=== PATIENT | male | born 1945 | race Caucasian/White ===

== ENCOUNTER 2022-12-12 11:17 | Day surgery (SDC) | payer OTHER ==
[2022-12-05 12:02] LABS: BASOPHILS # (AUTO) 0.1 X10'3 (0-0.2); BASOPHILS % (AUTO) 1.2 % (0-1); EOSINOPHILS # (AUTO) 0.6 X10'3 (0-0.9); EOSINOPHILS % (AUTO) 5.4 % (0-6); HEMATOCRIT 43.8 % (42.0-52.0); HEMOGLOBIN 14.6 g/dl (14.0-17.9); LYMPHOCYTES # (AUTO) 3.2 X10'3 (1.1-4.8); LYMPHOCYTES % (AUTO) 29.2 % (21-51); MEAN CORPUSCULAR HEMOGLOBIN 29.8 PG (27.0-31.0); MEAN CORPUSCULAR HGB CONC 33.2 g/dL (33.0-36.5); MEAN CORPUSCULAR VOLUME 89.8 FL (78-98); MEAN PLATELET VOLUME 8.3 FL (7.4-10.4); MONOCYTES # (AUTO) 0.7 X10'3 (0-0.9); NEUTROPHILS # (AUTO) 6.4 X10'3 (1.8-7.7); NEUTROPHILS % (AUTO) 58.2 % (42-75); PLATELET COUNT 304 X10'3 (140-440); RED BLOOD COUNT 4.88 X10'6 (4.70-6.10); RED CELL DISTRIBUTION WIDTH 14.5 % (11.5-14.5)
[2022-12-05 12:21] LABS: ALANINE AMINOTRANSFERASE 15 U/L (12-78); ALBUMIN 3.2 G/DL (3.4-5.0); ALBUMIN/GLOBULIN RATIO 0.9 (1.1-1.5); ALKALINE PHOSPHATASE 99 IU/L (46-116); ANION GAP 5 (8-16); ASPARTATE AMINO TRANSFERASE 12 U/L (10-37); BILIRUBIN,TOTAL 0.5 MG/DL (0.1-1.0); BLOOD UREA NITROGEN 34 MG/DL (7-18); BUN/CREATININE RATIO 14.7 (10.0-20.0); CALCIUM 9.9 MG/DL (8.5-10.1); CHLORIDE 108 MMOL/L (99-107); CREATININE 2.31 MG/DL (0.60-1.10); GLUCOSE 110 MG/DL (70-104); POTASSIUM 4.5 MMOL/L (3.5-5.1); SODIUM 143 MMOL/L (135-145); TOTAL CARBON DIOXIDE 29.6 MMOL/L (24-32); TOTAL PROTEIN 6.8 G/DL (6.4-8.2); eGFR 28 ML/MIN
[2022-12-12] VITALS (12 sets, daily range): BP systolic 130–176; BP diastolic 51–86
[~2022-12-12] VITALS: Ht 175.3 cm; Wt 59.0 kg
[~2022-12-12 11:17] MED LIST: AMLO2.5T2 PO; ASPI-529 PO; ATOR20TA PO; CHOL10008 PO; DOCUMENT DATE & TIME OF BETA-BLOCKER PO ONE; FINA5TAB11 PO; FLO0.4C PO; HYDR25TA5 PO; LISI40TA13 PO; METO-539 PO; OXYC-658 PO; albuterol 2.5 MG/3 ML nebule NEB ONE; cefazolin 2gm/D5W 100mL 100 ML IV ONE; famotidine 20mg tablet PO ONE; meperidine/PF 25mg/ml syringe IV PRN; morphine 2 MG/ML inj. syringe IV PRN; morphine 4 MG/ML inj SYRINge IV PRN; ondansetron/PF 4mg/2ml inj IV PRN; proCHLORperazine 10 MG/2 ml inj IV PRN; ringers solution, lacted 1,000 ML IV SCH
[2022-12-12] MEDS ORDERED: BUPIVAcaine 0.5% inj/PF 30 ML ONE (12:49)
[2022-12-12] MEDS ORDERED: desflurane 240ml liquid inh. IH ONE (12:50)
[2022-12-12] MEDS ORDERED: dexamethasone sod phosphate 10mg/ml inj ONE (12:50)
[2022-12-12] MEDS ORDERED: Cipro HC otic suspension 10ML bottle ONE (13:00)
[2022-12-12] MEDS ORDERED: midazolam 1 mg/ML 2ml injection ONE (13:04)
[2022-12-12] MEDS ORDERED: fentaNYL/PF 50MCG/1 ML 2ML syringe ONE (13:04)
[2022-12-12] MEDS ORDERED: propofol inj 20 ML IV ONE (13:10)
[2022-12-12] MEDS ORDERED: LIDOcaine 1%/PF 5ML 10 MG/ML VIAL ONE (13:10)
[2022-12-12] MEDS ORDERED: morphine 4 MG/ML inj SYRINge ONE (13:17)
[2022-12-12] MEDS ORDERED: BUPIVAcaine 0.5% inj/PF 30 ml vial IJ ONE (13:19)
[2022-12-12] MEDS ORDERED: bacitracin 15gm ointment TP ONE (13:37)
[2022-12-12] MEDS ORDERED: acetaminophen 1,000mg/100ml IV 100 ML IV ONE (13:50)
--- NOTE | 2022-12-12 14:12 | NUR ---
Received from OR via [facility], accompanied by Anesthesiologist DR WHITE and report given by Anesthesiologist. PT IS GROGGY BUT RESPONDS TO VERBAL STIMULI. PT PLACED ON BEDSIDE MONITOR, VSS. PT IS IN SR WITH RATE IN LOW 60'S. PT IS RECEIVING 8L O2 TOMASK AND TOLERATING WELL WITH O2 SAT >95%. WILL TITRATE DOWN PT TOLERATES. PT HAS 20G PIV TO LEFT HAND WITH NS INFUSING ORDERED. PT HAS DRSG TO RT GROIN THAT IS CDI. PT DENIES PAIN AT THIS TIME. WILL CONTINUE TO ASSESS
[2022-12-12] MEDS: meperidine/PF 25mg/ml syringe IV PRN ×2 (14:53→15:14)
[2022-12-12] MEDS ORDERED: oxyCODONE/APAP 10/325mg tablet PO ONE (16:15)
--- NOTE | 2022-12-12 17:55 | NUR ---
ABLE TO SAFELY AMBULATE AND TRANSFER SELF. IV TAKEN OUT WITHOUT ANY COMPLICATIONS. ALL DISCHARGE INSTRUCTIONS COVERED WITH PATIENT AND ALL QUESTIONS ANSWERED. KNAPP CATH PLACED D/T PT BEING UNABLE TO VOID AND BLADDER SCAN OF 300ML. PT GIVEN INSTRUCTIONS FOR HOME CARE PROVIDED WELL D/C INSTRUCTIONS. PT ALSO INFORMED THAT DR BROWER WILL BE AT [place] [facility] THE NEXT 2 DAYS AND CAN COME IN FOR CATH REMOVAL IF NEEDED. PATIENT TAKEN OUT VIA WHEELCHAIR TO PERSONAL VEHICLE WHERE FAMILY/FRIEND DROVE PATIENT HOME.
== END 2022-12-12 17:45 | disposition home or self-care (01) ==
LOC: PAS 11:17
PROVIDERS: ATTEND Surgery
DX: K41.90 Unilateral femoral hernia, without obstruction or gangrene, not specified as recurrent (principal); J44.9 Chronic obstructive pulmonary disease, unspecified; G89.29 Other chronic pain; F32.A Depression, unspecified; I12.9 Hypertensive chronic kidney disease with stage 1 through stage 4 chronic kidney disease, or unspecified chronic kidney disease; N18.30 Chronic kidney disease, stage 3 unspecified; I65.22 Occlusion and stenosis of left carotid artery; K21.9 Gastro-esophageal reflux disease without esophagitis; Z79.899 Other long term (current) drug therapy; Z79.891 Long term (current) use of opiate analgesic; F17.210 Nicotine dependence, cigarettes, uncomplicated; Z86.73 Personal history of transient ischemic attack (TIA), and cerebral infarction without residual deficits; Z79.01 Long term (current) use of anticoagulants
CPT/HCPCS: 36415; 49550; 80053; 82948; 85025; C1781; J0131; J0690; J1100; J2175; J2250; J2270; J2704; J3010; J3490; J7030; J7120; S0020; Z7506; Z7508; Z7512; A4215; A4314; A4618; A6449; A7000

== ENCOUNTER 2025-04-27 16:07 | Inpatient (IN) | payer OTHER ==
[~2025-04-27] VITALS: Ht 180.3 cm; Wt 62.7 kg
[~2025-04-27 16:07] MED LIST changes: +CHOL100061 PO; -CHOL10008 PO; -DOCUMENT DATE & TIME OF BETA-BLOCKER PO ONE; -FLO0.4C PO; -LISI40TA13 PO; +LISI40TA20 PO; +TAMS-55 PO; -albuterol 2.5 MG/3 ML nebule NEB ONE; -cefazolin 2gm/D5W 100mL 100 ML IV ONE; -famotidine 20mg tablet PO ONE; -meperidine/PF 25mg/ml syringe IV PRN; -morphine 2 MG/ML inj. syringe IV PRN; -morphine 4 MG/ML inj SYRINge IV PRN; -ondansetron/PF 4mg/2ml inj IV PRN; -proCHLORperazine 10 MG/2 ml inj IV PRN; -ringers solution, lacted 1,000 ML IV SCH
--- NOTE | 2025-04-27 16:24 | Physician Documentation ---
History of Present Illness General Chief Complaint: Bloody Emesis Stated Complaint: SEE CHIEF COMPLAINT Time Seen by MD: 16:21 History of Present Illness Initial Comments The patient is a 80-year-old male complains of emesis since having surgery on the 20 of April. The patient states that he has had prostate surgery he has laparoscopic scars on his abdomen. The patient states after surgery he has had recurrent episodes of bright red blood from his vomit he states he has vomited 3 times a day. The patient denies any history of GI bleed. Patient denies any use of NSAIDs or aspirin. The patient denies any blood thinners. The patient also complains of lower abdominal pain he states he has had pain since the surgery on the . The patient states he had prostate resection. The patient denies any fevers or chills. Patient's symptoms are moderate and persistent. Medication Reconciliation Allergies: Coded Allergies: No Known Allergies (Unverified , 12/11/22) Scheduled Amlodipine* (Norvasc*), 5 MG PO DAILY, (Reported) Aspirin (Baby Aspirin), 1 TAB PO DAILY, (Reported) Atorvastatin Calcium* (Lipitor*), 1 TABLET PO HS, (Reported) Cefpodoxime Proxetil (Cefpodoxime Proxetil), 200 MG PO DAILY, (Reported) Finasteride (Finasteride), 1 TAB PO DAILY, (Reported) Hydrochlorothiazide (Hydrochlorothiazide), 1 TAB PO DAILY, (Reported) Hydrochlorothiazide (Hydrochlorothiazide), 1 TAB PO DAILY, (Reported) Lisinopril* (Lisinopril*), 1 TAB PO DAILY, (Reported) Metoprolol Tartrate (Lopressor tablet), 1 TAB PO Q12H, (Reported) Trospium Chloride (Trospium Chloride), 1 TAB PO Q12H, (Reported) Scheduled PRN Omeprazole (Omeprazole), 1 CAP PO DAILY PRN for prn, (Reported) Oxycodone Hcl IR* (Oxycodone IR*), 1 TAB PO Q4H PRN for moderate or severe pain, (Reported) Discontinued Medications Amlodipine* (Norvasc*), 10 MG PO DAILY, (Reported) Discontinued Reason: patient no longer taking Cholecalciferol (Vitamin D3) (Vitamin D3), 1 CAP PO DAILY, (Reported) Discontinued Reason: patient no longer taking Metoprolol Succinate* (Toprol Xl*), 1 TAB PO DAILY, (Reported) Discontinued Reason: patient no longer taking Tamsulosin Hcl* (Flomax*), 2 CAP PO HS, (Reported) Discontinued Reason: patient no longer taking Past Medical History Other Past Medical History: Prostate cancer Review of Systems All Other Systems at this time: Reviewed and Negative Physical Exam Physical Exam Vital Signs: Source: Oral, Heart Rate: 79, Respiratory Rate: 16, BP: 63/37, Pulse Oximetry: 95, Weight: 62.730 Oxygen Flow Rate: 0 Physical Exam VITALS: Reviewed and as above. GENERAL: Alert, no apparent distress. HEENT: Normocephalic, atraumatic, PERRL, EOMI, dry mucosa, no erythema RESPIRATORY: Lungs clear, normal breath sounds, no respiratory distress. CHEST: No accessory muscle use, no retractions CV: Regular rate, rhythm, no edema, no murmur, No: JVD GI: Diffuse lower abdominal tenderness, laparotomy scars in his small midline and suture line with sutures intact. No peritoneal signs bowels sounds present, no rebound, guarding, or rigidity BACK: No CVA tenderness, or swelling MUSCULOSKELETAL: No deformities, no edema SKIN: Warm and dry, no rash NEURO: Oriented x4, No motor or sensory deficit PSYCH: Normal mood and affect, no agitation Progress Results/Orders Results/Orders Orders - OHLJAMIL DENSON MD Stat Ekg (04/27/25 ) Ct Chest Abdomen Pelvis (04/27/25 ) Page Hospitalist (04/27/25 ) Completed Orders - OHJAMIL COVARRUBIAS MD Cbc/Diff (04/27/25 16:20) Lipase (04/27/25 16:20) CMP (04/27/25 16:20) Type And Screen (04/27/25 16:20) Stat Ekg (04/27/25 ) Pantoprazole 40mg/Ns 100ml Bag (Protonix (04/27/25 16:25) Pantoprazole 40mg Iv (Protonix 40mg Iv) (04/27/25 16:25) Normal Saline 1000ml (0.9% Sodium Chlori (04/27/25 16:30) Hydromorphone 0.5 Mg/0.5 Ml/Pf (Dilaudid (04/27/25 16:30) Ondansetron Inj. (Zofran 4mg/2ml Vial) (04/27/25 16:35) Normal Saline 1000ml (0.9% Sodium Chlori (04/27/25 17:15) Ct Chest Abdomen Pelvis (04/27/25 ) Ceftriaxone/P8f-Efnxyzpe 1gm (Rocephin 1 (04/27/25 17:55) Azithromycin/Ns 500mg/250ml (Zithromax/N (04/27/25 17:55) Hgb A1c (04/27/25 16:34) MG (04/27/25 16:34) PBNP (04/27/25 16:34) PHOS (04/27/25 16:34) Vital Signs 04/27/25 04/27/25 04/27/25 04/27/25 16:14 16:34 16:44 17:23 Temp 97.9 Pulse 79 99 Resp 16 13 15 B/P (MAP) 63/37 141/65 (90) Pulse Ox 95 89 O2 Flow Rate 0 0 Laboratory Tests Test 04/27/25 16:27 04/27/25 16:34 04/27/25 16:54 White Blood Count 10.9 Red Blood Count 3.61 L Hemoglobin 11.0 L Hematocrit 32.1 L Mean Corpuscular Volume 88.8 Mean Corpuscular Hemoglobin 30.4 Mean Corpuscular Hemoglobin Concent 34.3 Red Cell Distribution Width 14.2 Platelet Count 347 Mean Platelet Volume 8.4 Neutrophils (%) (Auto) 65.5 Lymphocytes (%) (Auto) 17.8 L Monocytes (%) (Auto) 9.7 Eosinophils (%) (Auto) 6.3 H Basophils (%) (Auto) 0.7 Neutrophils # (Auto) 7.1 Lymphocytes # (Auto) 1.9 Monocytes # (Auto) 1.1 H Eosinophils # (Auto) 0.7 Basophils # (Auto) 0.1 CBC Comment Prothrombin Time 10.7 INR International Normalized Ratio 1.0 Activated Partial Thromboplast Time 27 Coagulation Comments Sodium Level 140 Potassium Level 4.4 Chloride Level 101 Carbon Dioxide Level 34.1 H Anion Gap 5 L Blood Urea Nitrogen 56 H Creatinine 4.51 H Estimated GFR/1.73 m2 13 BUN/Creatinine Ratio 12.4 Glucose Level 139 H Hemoglobin A1c 5.4 Calcium Level 9.2 Phosphorus Level 6.3 H Magnesium Level 3.1 H Total Bilirubin 0.3 Aspartate Amino Transf (AST/SGOT) 20 Alanine Aminotransferase (ALT/SGPT) 18 Alkaline Phosphatase 91 Pro-B-Type Natriuretic Peptide 1371 H Total Protein 6.8 Albumin 2.6 L Globulin 4.2 Albumin/Globulin Ratio 0.6 L Lipase 29 Procalcitonin 0.33 Chemistry Comments Lactic Acid Level 1.1 Medical Decision Making Additional information obtaine: old records Findings 80-year-old male with a reported hematemesis over the last week the patient is also has a lower abdominal pain, patient has remained hemodynamically stable the patient was started on Protonix drip CT imaging was reviewed by me prior to radiology reviewing the films the patient is pending radiology review and has been signed out to the oncoming physician. The patient will be admitted to the hospitalist. The patient has had a rapid recent laparoscopic prostate surgery the patient will be admitted to the hospitalist service. The patient was started on Protonix. Previous hospitalizations has been reviewed. The patient's pulse oximetry was interpreted as normal and adequate. The patient's CT was reviewed by me and also demonstrated a right lower lobe infiltrate he was started on antibiotics. The patient's pulse oximetry was interpreted as normal and adequate in his night monitor was interpreted as sinus rhythm Differential Diagnosis Perforated viscus, ileus, pneumonia, sepsis Departure Admitted to Inpatient Unit: yes, to hospitalist Impression: Primary Impression: GI bleed Qualified Codes: K92.2 - Gastrointestinal hemorrhage, unspecified Additional Impressions: Hematemesis Qualified Codes: K92.0 - Hematemesis Pneumonia Qualified Codes: J18.9 - Pneumonia, unspecified organism Acute kidney injury Referrals: NO PRIMARY CARE PROVIDER (PCP) Signature Scribe Signature: No scribe Attestation: The note accurately reflects work and decisions made by me.Jamil Manriquez MD 04/29/25 06:50 JAMIL MANRIQUEZ MD Apr 27, 2025 16:24
[2025-04-27] MEDS: ondansetron/PF 4mg/2ml inj IV ONE (16:42)
[2025-04-27] MEDS: HYDROmorphone inj. 0.5 MG/0.5 ML DISP.SYRIN IV ONE ×2 (16:44→23:36)
[2025-04-27] MEDS: normal saline 1000ML IV soln IVB ONE ×2 (16:47→19:12)
[2025-04-27] MEDS: pantoprazole 40MG/NS 100ML BAG 100 ML IV ONE (16:47)
[2025-04-27 16:53] LABS: MEAN PLATELET VOLUME 8.4 FL (7.4-10.4); RED CELL DISTRIBUTION WIDTH 14.2 % (11.5-14.5)
[2025-04-27 16:58] LABS: CREATININE 4.51 MG/DL (0.60-1.10); TOTAL CARBON DIOXIDE 34.1 MMOL/L (24-32); eCRCL 12 ML/MIN; eGFR 13 ML/MIN
--- NOTE | 2025-04-27 17:13 | ELECTROCARDIOGRAPH REPORT ---
[facility] Test Date: 2025-04-27 Test Time: 16:25:55 Pat Name: JOSE ALBERTO ANAYA Department: EMERGENCY ROOM Room: ORTHO [facility] Gender: M Molecular Modeler: CHANDRA : 1945 Requested By: JAMIL OCHOA Order Number: [id number] Reading MD: Dr. OMAR Boateng Measurements Intervals [place] Rate: 77 P: 52 VT: 157 QRS: -37 QRSD: 91 T: 85 QT: 382 QTc: 433 Interpretive Statements Sinus rhythm Left axis deviation Low voltage, precordial leads Nonspecific T abnrm, anterolateral leads Minimal ST elevation, anterolateral leads Electronically Signed On 04-28-2025 17:33:[address] OMAR Boateng Please click the below link to view image of tracing.
[2025-04-27] MEDS: CefTRIAXone/D5W-Rocephin 1gm 50 ML IV ONE (18:26)
--- NOTE | 2025-04-27 18:44 | RADIOLOGY REPORT ---
Indication: COUGHT HX PROSTATE CA abd pain, emesis Technique: CT axial images of the chest, abdomen and pelvis are obtained without intravenous contrast. Coronal and sagittal reformats were obtained. Radiation Dose Information: CTDI volume is 8.6 mGy. Dose-length product is 953 mGy*cm Comparison: None FINDINGS: Trachea is patent. No pneumothorax. Pulmonary emphysematous changes. Right lower lobe airspace consolidation, tree-in-bud nodularity and bronchiectatic changes. Heart normal in size. Aortic atherosclerotic disease. Coronary artery calcification disease. Pretracheal lymph nodes measuring up to 10 mm. No supraclavicular, axillary lymphadenopathy. Adrenal glands, spleen, pancreas and liver unremarkable in shape. No CT evidence for cholelithiasis. Kidneys demonstrate no hydronephrosis / nephrolithiasis. Marked gastric distention. The small bowel loops arem moderately distended up to proximally 3 cm. There are also fecal like contents within the small bowel. Colonic diverticular disease. Large volume stool throughout the colon. No secondary signs for appendicitis. Abdominal aortic atherosclerotic disease. Dilatation of the infrarenal abdominal aorta up to 2.5 cm. Dilatation right common iliac artery to 1.7 cm. Andujar catheter. Bladder decompressed. Bladder wall thickening with surrounding stranding. There is moderate volume pneumoperitoneum extending to the upper abdomen. Free air within the pelvis. Findings suggestive of prostatectomy. Moderate lumbar degenerative disc disease most pronounced at L4-5. [id number] bilateral sacroiliac degenerative joint disease. No aggressive osseous process. Yyxf-gu-[id number] thoracic degenerative disc disease. IMPRESSION: Limited evaluation without contrast. Moderate volume of pneumoperitoneum. There is also free air within the pelvis. While this could be secondary to the patient's known history of recent laparoscopic prostate surgery/prostatectomy, correlate clinically to exclude any type of perforated viscus/perforated bowel. Recommend urology and surgery consultation for evaluation. Large volume stool within the colon may represent constipation in the appropriate clinical setting. Moderate distention of small-bowel loops with fecal like contents up to 3 cm. Fecal like contents within the small bowel which can be seen with ileus, hypomotility, bowel obstruction. Gastric distention. There is right lower lobe pulmonary airspace consolidation, tree-in-bud nodularity and bronchiectatic changes with differential considerations including atypical infectious processes, aspiration. Atherosclerotic disease. 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 Extensive colonic diverticular disease. Bladder decompressed by Andujar catheter. Bladder wall thickening with surrounding stranding may represent sequela of cystitis. Other findings as described
[2025-04-27] MEDS: azithromycin/NS 500mg/250ml 250 ML IV ONE (19:13)
[2025-04-27] MEDS ORDERED: magnesium Cl slow-release 64mg tablet PO PRN (19:15)
[2025-04-27] MEDS ORDERED: magnesium hydroxide 30ml (MOM) UD suspension PO PRN (19:15)
[2025-04-27] MEDS ORDERED: potassium Cl 40MEQ/1/2NS 520ml 520 ML IV PRN (19:15)
[2025-04-27] MEDS ORDERED: magnesium sulf-water 4G/100mL 100 ML IV PRN (19:15)
[2025-04-27] MEDS ORDERED: magnesium sulf-water 2g/50mL 50 ML IV PRN (19:15)
[2025-04-27] MEDS ORDERED: potassium Cl 20 mEq SR tablet PO PRN ×2 (19:15)
[2025-04-27] MEDS ORDERED: mag hydrox/Alum hydrox/simeth 30ml oral suspension PO PRN (19:15)
[2025-04-27 19:35] LABS: APTT 27 SECONDS (22-32); INR 1.0 INR
[2025-04-27 19:51] LABS: PHOSPHORUS 6.3 MG/DL (2.3-4.5); PRO BRAIN NATRIURETIC PEPTIDE 1371 PG/ML (0-450)
[2025-04-27] MEDS: K and/or MAG REPLACEMENT MC SCH (20:00)
[2025-04-27] MEDS: docusate sod 100mg capsule PO SCH (20:00)
[2025-04-27] MEDS: normal saline 1000ml 1,000 ML IV SCH (21:01)
--- NOTE | 2025-04-27 21:10 | HISTORY AND PHYSICAL-Residence ---
History & Physical Providers to CC Resident Creating Document: NABILA GARCIA RES ~ History of Present Illness Reason for Admit\Complaint: Hematemesis History of Present Illness 80 year old male with history of hypertension, BPH, laparoscopic prostate resection on Apr 20, 2025, history of stoke was brought to the ER by son due to hematemesis and hematuria. He denies prostate cancer and states that he had the surgery as he was unable to void. The son was at home today and noticed bright red blood in vomit and brought him to the ER. The patient states that he has been having 3/4 episodes of hematemesis everyday, especially after he voids after the laparoscopic prostate resection surgery on Apr 20, 2025. He also has hematuria since the surgery, He has a brody's in place with reddish urine but no clots. He is not on anticoagulants. He is on aspirin due to history of stroke. He is not an alcoholic. He never had an endoscopy. He endorses lower abdominal pain. He did not have a bowel movement since the surgery but has been passing gas. He has not been walking much after the surgery. He has decreased appetite and has lost weight. He reports occasional chills. He denies chest pain, shortness of breath, palpitations, swelling and pain in legs, confusion, headache. His PCP is at [place] [facility] He lives with and son at home He can ambulate independently but has not been walking much after the prostate resection surgery Allergies: Coded Allergies: No Known Allergies (Unverified , 12/11/22) Home Medications Home Medications Active Reported Baby Aspirin (Aspirin) 81 Mg Tab.chew 1 Tab PO DAILY Norvasc* (Amlodipine Besylate) 2.5 Mg Tablet 10 Mg PO DAILY Toprol Xl* (Metoprolol Succinate) 25 Mg Tab.sr.24h 1 Tab PO DAILY Hydrochlorothiazide 25 Mg Tab 1 Tab PO DAILY Lipitor* (Atorvastatin Calcium) 20 Mg Tablet 1 Tablet PO HS Finasteride 5 Mg Tablet 1 Tab PO DAILY Flomax* (Tamsulosin HCl) 0.4 Mg Cap.sr.24h 2 Cap PO HS Oxycodone IR* (Oxycodone HCl) 5 Mg Tablet 1 Tab PO Q4H PRN Lisinopril* (Lisinopril) 40 Mg Tablet 1 Tab PO DAILY Vitamin D3 (Cholecalciferol (Vitamin D3)) 25 Mcg Capsule 1 Cap PO DAILY Past Medical History Past Medical History Hypertension BPH Shingles History of Stroke s/p stent placement Past Surgical History Surgical History Comment Abdominal surgery many years ago, patient unable to recall the reason for surgery Laparascopic prostate resection on Apr 20, 2025 Past Social History Social History Comment He smokes a pack/day for the past 50 years He denies alcohol and recreational drug use His PCP is at [place] [facility] He lives with and son at home He can ambulate independently but has not been walking much after the prostate resection surgery ROS All Other Systems: Reviewed and Negative ROS Constitutional: Reports chills, No dizziness Eyes: No pain, erythema, discharge, blurring of vision ENT: No sore throat, epistaxis, tinnitus Cardiovascular: No chest pain, palpitations, syncope, lower extremity edema, paroxysmal nocturnal dyspnea Respiratory: No Shortness of breath and cough, No hemoptysis. Gastrointestinal: Reports lower abdominal pain, vomiting,nausea,constipation, h ematemesis, decreased appetite. Genitourinary: Reports hematuria Musculoskeletal: No Swelling, pain in bilateral lower legs. Integumentary: No change in skin, hair, nails. No swelling, bruising, abrasions Neurologic: No weakness,No headache, numbness or tingling of the extremities, Psychiatric: No delusions, depression, loss of interest in normal activity or change in sleep pattern, hallucinations, suicidal ideations Endocrine: No fatigue, no weakness. polydipsia, polyuria, change in appetite, heat or cold intolerance, sweating, dry skin Hematological: No bleeding, petechiae, bruising Allergies: No asthma or urticaria Exam Vitals: Vital Signs Date Time Temp Pulse Resp B/P (MAP) Pulse Ox O2 Delivery O2 Flow Rate FiO2 04/27/25 19:00 97.5 73 11 127/92 (104) 94 04/27/25 17:23 0 General: Awake , alert, and oriented x4, resting comfortably in the bed, in mild distress due to abdominal pain, brody's in place HEENT: Atraumatic, normocephalic, EOMI, anicteric sclera ; pink conjunctiva, dry mucous membranes, capillary refill > 2 sec Neck: Trachea midline. Supple, full range of motion, no JVD Cardiac: Regular rate, rhythm with no murmurs all over the precordium. Respiratory: Diminished breath sounds bilaterally, no tachypnea, no wheezing ,rub or rales, Chest wall is symmetric and without deformity. Gastrointestinal: 2 cm horizontal scars and 4 cm vertical scar present over abdomen, with no discharge and surrounding skin is normal. Abdomen non- distended, soft, tenderness present in lower abdomen, faint bowel sounds heard, no hepatosplenomegaly noted Musculoskeletal: No pedal edema, no cyanosis Neurological: Speech is clear, alert, and oriented x 4. No motor and sensory deficit, Cranial nerves II-XII intact. Skin: Warm and dry Diagnostic Data Last Recorded Lab Results: 04/27/25 1627 04/27/25 1634 Diagnostic Data: Laboratory Tests Test 04/27/25 16:34 Prothrombin Time 10.7 SECONDS (9.0-12.0) INR International Normalized Ratio 1.0 INR Activated Partial Thromboplast Time 27 SECONDS (22-32) Coagulation Comments Advance Care Planning Advanced Care plannin - 30 Minutes (Full code) Additional Plan Hematemesis Normocytic normochromic anemia Differential diagnosis include Hansa-Alvarez tear, peptic ulcer disease Patient is not an alcoholic, and he has small episodes of hematemesis- esophageal varices are less likely Patient is not on blood thinners, he is only on aspirin 81 mg 2/2 history of stroke H/H is .1 Started protonix drip NG tube is placed and patient is on NPO Monitor H/H Q4h PRBC transfusion if Hb < 7 GI, Dr. Hickman was consulted, awaiting recommendations Possible ileus vs SBO Patient did not have bowel movement after the surgery on Apr 20, 2025 He has been passing gas Faint bowel sounds heard Lower abdominal tenderness present WBC, Procalcitonin and Lactic acid are normal Abdomen CT shows moderate pneumoperitoneum, free air within pelvis which could be secondary to recent laparoscopic surgery, large volume stool within the colon. moderate distension of small bowel loops with fecal like contents upto 3 cm, gastric distension. NG tube is placed and patient is on NPO Surgery, Dr. White was consulted, awaiting recommendations Hematuria UTI due to indwelling brody's catheter BPH s/p laparoscopic prostate resection on Apr 20, 2025 Patient denies history of prostate cancer He has brody's in place with reddish urine and no clots are visible CT shows bladder wall thickening with surrounding stranding which may represent sequela of cystitis. Follow up urinalysis Started IV Rocephin 1 gm - day 1 As per patient, he has been using cefpodoxime 200 mg after the surgery Patient uses finasteride 5 mg and Trospium 20 mg BID for spasms, will continue after med reconciliation Plan to consult urology Acute respiratory failure 2/2 Pneumonia with mixed gram negative and gram positive organisms Possible aspiration pneumonia Bronchiectasis O2 saturation 94 % on 3 L NC Patient does not use O2 at home Patient is an active smoker- 1 pack/day for the past [address] shows right lower lobe pulmonary consolidation, tree-in-bud nodularity, and bronchiectatic changes with differential considerations including atypical infectious processes, aspiration. Started IV rocephin 1 gm and IV zithromax 500 mg-day 1 IV Methylprednisolone 125 mg followed by IV methylprednisolone 40 mg b.i.d. Duonebs and incentive spirometry Follow up sputum cultures KAYLEEN, most likely prerenal due to dehydration Vasomotor nephropathy Creatinine is elevated-4.51, Baseline creatinine 2.31 BUN is elevated- 56 BUN/Cr is normal Follow up urine lytes NS at 100 ml/hr Monitor BMP Hyperphosphatemia Hypermagnesemia Phosphorus- 6.3, Magnesium-3.1 Started Sevelamer 800 mg TID Monitor BMP History of shingles Patient uses oxycodone at home, pending med reconciliation Hypertension Blood pressure has stabilized Patient uses hydrochlorthiazide 25 mg, lisinopril 40 mg and metoprolol tartrate 25 mg BID at home Pending med reconciliation Consider holding lisinopril as eGFR is low History of stoke Patient uses aspirin 81 mg, atorvastatin 20 mg at home Pending med reconciliation, hold aspirin Follow up lipid panel I spent a total of 18 minutes reviewing various resuscitative measures/ACP with the patient. The patient decided to be full code. Code status: Full code DVT prophylaxis : SCD GI prophylaxis: Protonix drip Nutrition: NPO Physical therapy: ordered Line/tube: PIV Analgesia/sedation: Tylenol 325 q.6h PRN Disposition: Continue IV antibiotics, monitor bowel movements, awaiting Dr. Swanson and Dr. White recommendations, PT eval and DC plan Resident attestation The above note has been reviewed and supervised by a senior resident PGY2/PGY3 Patient was seen, examined and discussed with the attending physician, Dr. Aline Garcia Internal Medicine Resident, PGY 1 Date of Service: Apr 27, 2025 Billing Provider: CECY SHARMA MD,NABILA, RES Apr 27, 2025 21:10
--- NOTE | 2025-04-27 21:12 | PROGRESS NOTE ---
Progress Note ID Providers to CC ~ Progress Note Progress Note: pt seen and examined-no peritonitis-pneumoperitoneum likely secondary to recent surgery WICHO SANDERS MD Apr 27, 2025 21:12
[2025-04-27] MEDS ORDERED: TROS20TA4 PO (21:49)
[2025-04-27] MEDS ORDERED: CEFP100T7 PO (21:49)
[2025-04-27] MEDS ORDERED: OMEP20CA16 PO (21:49)
[2025-04-27] MEDS ORDERED: LOP12.5T PO (21:49)
[2025-04-27] MEDS ORDERED: albuterol 2.5 MG/3 ML nebule NEB PRN (22:10)
[2025-04-27] MEDS: sevelamer carbonate 800mg tablet PO SCH (22:25)
[2025-04-27 22:30] VITALS: BP 139/61; PULSE 66; RESP 16; TEMP 97.5; O2SAT 96
--- NOTE | 2025-04-27 23:34 | RADIOLOGY REPORT ---
Exam: DI ABDOMEN,SINGLE VIEW(KUB) Indication: ng placement Comparison: None Technique: 1 radiographic views of the abdomen. FINDINGS/IMPRESSION: Limited evaluation for the assessment of nasogastric tube placement. Nasogastric tube tip projects over the left upper quadrant, presumably in the region of the stomach, though the gastric side port appears to project above the diaphragm, consider tube advancement.
[2025-04-27 23:47] LABS: MEAN PLATELET VOLUME 8.3 FL (7.4-10.4); RED CELL DISTRIBUTION WIDTH 14.0 % (11.5-14.5)
[2025-04-28] VITALS (25 sets, daily range): BP systolic 90–142; BP diastolic 43–73; PULSE 62–89; RESP 12–20; TEMP 97.3–99.2; O2SAT 90–99
[2025-04-28] MEDS: ipratropium/albuterol 3ml nebule NEB SCH (00:18)
[2025-04-28 01:41] LABS: OSMOLALITY UA 345.0 MOSM/K (50-1400)
[2025-04-28 01:44] LABS: CREATININE,URINE RANDOM 87.0 MG/DL
[2025-04-28 02:11] LABS: LEUKOCYTE ESTERASE ,URINE SMALL (Neg); NITRITES, URINE NEGATIVE (Neg); OCCULT BLOOD,URINE LARGE (Neg)
[2025-04-28 02:16] LABS: UA COLLECTION TYPE FOLEY CATH
[2025-04-28 02:21] LABS: SQUAMOUS EPITHELIAL CELL,UR FEW /LPF (FEW)
[2025-04-28 03:21] LABS: MEAN PLATELET VOLUME 8.0 FL (7.4-10.4); RED CELL DISTRIBUTION WIDTH 14.1 % (11.5-14.5)
[2025-04-28 03:29] LABS: CHOL/HDL RATIO 2.5 (0.00-4.99); CREATININE 4.10 MG/DL (0.60-1.10); LDL CHOLESTEROL 44 MG/DL (50-100); TOTAL CARBON DIOXIDE 26.8 MMOL/L (24-32); eCRCL 13 ML/MIN; eGFR 14 ML/MIN
[2025-04-28 03:37] LABS: UA EOSINOPHILS NO EOS /HPF
--- NOTE | 2025-04-28 06:23 | PROGRESS NOTE ---
Clinical Note Clinical Note Progress Note: 80-year-old male with history of hypertension, BPH s/p laparoscopic prostate resection (04/20/25) presented with hematemesis and hematuria. Patient reported 3-4 episodes of bright red vomiting daily. Lower abdominal discomfort was present; no vomiting at time of my exam. Objective: Mild distress, guarding on palpation, no rigidity Abdomen soft, faint bowel sounds Andujar catheter in place with reddish urine, no clots Vitals stable A/P Dr. Christianson (Surgery): no acute surgical abdomen, no need for emergent surgery; will evaluate in a.m. GI consulted: recommended NG tube decompression, NPO, stabilize patient, plan for tentative EGD once stable on 04/28 Continue PPI infusion, monitor H&H Q4h, PRBC transfusion if Hb <7 Monitor for peritoneal signs, bowel function MATT MEZA, RES Apr 28, 2025 06:23
--- NOTE | 2025-04-28 06:28 | CONSULTATION REPORT - RESIDENT ---
Consult Providers to CC Resident Creating Document: MATT MEZA RES History of Present Illness Reason for Admit\Complaint: Hematemesis History of Present Illness A 80-year-old male with history of hypertension, BPH s/p laparoscopic prostate resection on Apr 20, 2025, and prior stroke with stent placement, presented with hematemesis and hematuria. Patient reported 3-4 episodes of bright red vomiting daily, particularly after voiding postoperatively. He has reddish urine without clots through indwelling Andujar. Patient endorses lower abdominal discomfort, constipation since surgery, decreased appetite, and unintentional weight loss. Denies chest pain, shortness of breath, palpitations, confusion or other systemic complaints. The patient has not walked much since surgery, has been passing flatusvand has occasional chills. He has had no bowel movements since then He is not on anticoagulants but takes aspirin 81 mg for stroke prophylaxis. No prior endoscopy or alcohol use. Allergies: Coded Allergies: No Known Allergies (Unverified , 12/11/22) Home Medications Home Medications Active Reported Omeprazole 20 Mg Capsule.dr 1 Cap PO DAILY PRN 30 Days Trospium Chloride 20 Mg Tablet 1 Tab PO Q12H 30 Days Lopressor tablet (Metoprolol Tartrate) 25 Mg Tablet 1 Tab PO Q12H 30 Days Hold for SBP below 100mm Hg Hold for Heart Rate below 60. Hydrochlorothiazide 25 Mg Tab 1 Tab PO DAILY 30 Days Cefpodoxime Proxetil 100 Mg Tablet 200 Mg PO DAILY 7 Days Norvasc* (Amlodipine Besylate) 2.5 Mg Tablet 5 Mg PO DAILY 30 Days Baby Aspirin (Aspirin) 81 Mg Tab.chew 1 Tab PO DAILY Hydrochlorothiazide 25 Mg Tab 1 Tab PO DAILY Lipitor* (Atorvastatin Calcium) 20 Mg Tablet 1 Tablet PO HS Finasteride 5 Mg Tablet 1 Tab PO DAILY Oxycodone IR* (Oxycodone HCl) 5 Mg Tablet 1 Tab PO Q4H PRN Lisinopril* (Lisinopril) 40 Mg Tablet 1 Tab PO DAILY Past Medical History Past Medical History Hypertension BPH Shingles CAD s/p stent placement Past Surgical History Surgical History Comment Laparoscopic prostate resection (04/20/25) Prior abdominal surgery, details unknown Past Social History Social History Comment He smokes a pack/day for the past 50 years He denies alcohol and recreational drug use ROS ROS GI: Hematemesis, nausea, lower abdominal pain, constipation, decreased bowel movements, passing gas : Hematuria All other systems negative for acute complaints Exam Vitals: Vital Signs Date Time Temp Pulse Resp B/P (MAP) Pulse Ox O2 Delivery O2 Flow Rate FiO2 04/28/25 06:04 14 04/28/25 02:14 98.1 80 138/65 (89) 91 Nasal Cannula 2.0 04/28/25 00:20 28 General: General: Awake, alert, oriented 4, mild distress due to abdominal pain HEENT: Atraumatic, normocephalic, EOMI, anicteric sclera ; pink conjunctiva Neck: Trachea midline. Supple, full range of motion, no JVD Cardiac: Regular rhythm, regular rate with no murmurs all over the precordium. Respiratory: Equal breath sounds bilaterally, no tachypnea, no wheezing ,rub or rales, Chest wall is symmetric and without deformity. Abdomen: Soft, non-distended, tenderness in lower abdomen, guarding but no rigidity, faint bowel sounds Musculoskeletal: No pedal edema, no cyanosis Neurological: No FNDs, cranial nerve examination intact , speech is clear, mentation intact Skin: Warm and dry Diagnostic Data Last Recorded Lab Results: 04/28/25 0300 04/28/25 0300 Diagnostic Data: Laboratory Tests Test 04/27/25 16:34 Prothrombin Time 10.7 SECONDS (9.0-12.0) INR International Normalized Ratio 1.0 INR Activated Partial Thromboplast Time 27 SECONDS (22-32) Coagulation Comments Additional Plan 1. Upper GI Bleed (hematemesis) Likely Hanas-Alvarez tear or peptic ulcer Patient stable; not alcoholic, only on aspirin. Plan: Continue PPI drip Monitor H/H Q4h; transfuse PRBC if Hb <7 Tentative EGD today once stabilized Maintain NPO and NG decompression 2. Postoperative ileus / partial small bowel obstruction CT shows moderate small bowel distension, fecal-like contents, moderate pneumoperitoneum (likely postoperative) Passing gas; no rigidity. Plan: Continue NPO and NG decompression Serial abdominal exams, monitor for peritoneal signs Encourage ambulation as tolerated Monitor electrolytes and BMP Surgery, Dr. Gilbert was consulted, no signs of peritonitis currently; hence no urgent need of any surgery Dr. Gilbert to re-evaluate patient in a.m. Hematuria Likely catheter-associated cystitis. Aspiration / community-acquired pneumonia with bronchiectasis KAYLEEN, likely prerenal, vasomotor nephropathy (Cr 4.51, baseline 2.31) Hyperphosphatemia, hypermagnesemia Hypertension Management per hospitalist team Code Status: Full code status DVT Prophylaxis: SCDs for now Analgesia/ Sedation: Avoid NSAIDs Line/tubes: P IV GI Prophylaxis: Protonix Nutrition: NPO for now Matt Meza MD Internal Medicine Resident, PGY-2 Date of Service: Apr 28, 2025 Billing Provider: TANYA CAMACHO MD, GAURAV, RES Apr 28, 2025 06:28
[2025-04-28] MEDS ORDERED: HYDROmorphone inj. 0.5 MG/0.5 ML DISP.SYRIN IV PRN (07:45)
[2025-04-28] MEDS: Trospium Chloride 20 MG PO SCH (08:00)
[2025-04-28 08:01] LABS: MEAN PLATELET VOLUME 8.5 FL (7.4-10.4); RED CELL DISTRIBUTION WIDTH 14.2 % (11.5-14.5)
[2025-04-28 08:31] LABS: PHOSPHORUS 6.0 MG/DL (2.3-4.5)
[2025-04-28] MEDS: docusate sodium 100mg/10ml UD cup PO SCH (08:49)
[2025-04-28] MEDS: HYDROcodone/acetaminophen 10/325mg tab PO PRN (08:51)
[2025-04-28] MEDS: CefTRIAXone/D5W-Rocephin 1gm 50 ML IV SCH (08:56)
[2025-04-28 10:46] LABS: MEAN PLATELET VOLUME 8.0 FL (7.4-10.4); RED CELL DISTRIBUTION WIDTH 14.1 % (11.5-14.5)
--- NOTE | 2025-04-28 11:06 | PROGRESS NOTE- Residence ---
Progress Note - Resident Providers to CC Resident Creating Document: NABILA GARCIA RES ~ Antibiotic Timeout Antibiotic Ordered?: Yes Subjective Patient was seen and examined bedside. He states that the abdominal pain has mildly improved. He had no nausea or vomiting after admission. NG tube has drained bilious fluid of 160 mL overnight. Tenderness present on palpation of lower abdomen. Bowel sounds are heard. Patient has hematuria in Brody's bag without clots. He does not complain of shortness of breath. He is saturating well on 2 L NC. Objective Vital Signs Date Time Temp Pulse Resp B/P (MAP) Pulse Ox O2 Delivery O2 Flow Rate FiO2 04/28/25 08:48 77 04/28/25 07:05 16 97 Nasal Cannula* 2 28 04/28/25 06:00 98.2 142/68 (92) Result Diagram: 04/28/25 1038 04/28/25 0300 Awake, alert, and oriented x4, resting comfortably in the bed, in no acute distress, Brody's tube and NG tube in place HEENT: Atraumatic, normocephalic, EOMI, anicteric sclera ; pink conjunctiva, dry mucous membranes Neck: Trachea midline. Supple, full range of motion, no JVD Cardiac: Regular rhythm, regular rate with no murmurs all over the precordium. Respiratory: Equal breath sounds bilaterally, no tachypnea, no wheezing ,rub or rales, Chest wall is symmetric and without deformity. Gastrointestinal: 2 cm horizontal scars and 4 cm vertical scar present over abdomen, with no discharge and surrounding skin is normal. Abdomen non- distended, soft, tenderness present in lower abdomen, bowel sounds heard, no hepatosplenomegaly Musculoskeletal: No pedal edema, no cyanosis Neurological: Speech is clear, alert, and oriented x 4. No motor or sensory deficit, deep tendon reflexes normal, cerebellar intact. Cranial nerves II-XII intact. Skin: Warm and dry Coagulation Studies Laboratory Tests Test 04/27/25 16:34 Prothrombin Time 10.7 SECONDS (9.0-12.0) INR International Normalized Ratio 1.0 INR Activated Partial Thromboplast Time 27 SECONDS (22-32) Coagulation Comments Assessment Assessment 80-year-old male with history of hypertension, BPH, laparoscopic prostate resection on April 20, 2025 admitted for management of hematemesis, hematuria and SBO. Plan Plan Hematemesis Normocytic normochromic anemia Differential diagnosis include Hansa-Alvarez tear, peptic ulcer disease Patient is not an alcoholic, and he has small episodes of hematemesis- esophageal varices are less likely Patient is not on blood thinners, he is only on aspirin 81 mg 2/2 history of stroke, held aspirin No further episodes of nausea or vomiting NG tube drained 160 mL of bilious fluid overnight H/H downtrended to 9.7/28.9 Continue protonix drip and NPO Monitor H/H Q4h PRBC transfusion if Hb < 7 Patient will be getting EGD today by Dr. Hickman Possible ileus vs SBO Patient did not have bowel movement after the surgery on Apr 20, 2025 He has been passing gas Faint bowel sounds heard Lower abdominal tenderness present Inflammatory markers are normal Abdomen CT shows moderate pneumoperitoneum, free air within pelvis which could be secondary to recent laparoscopic surgery, large volume stool within the colon. moderate distension of small bowel loops with fecal like contents upto 3 cm, gastric distension. NG tube drained 160 mL of bilious fluid overnight Continue patient on NPO Dr. White was consulted, and he states that patient does not need an emergent surgery as there are no signs of peritonitis He recommends to continue bowel rest and he will be following up the patient Monitor bowel movements Hematuria UTI due to indwelling brody's catheter BPH s/p laparoscopic prostate resection on Apr 20, 2025 Patient denies history of prostate cancer He has brody's in place with reddish urine and no clots are visible CT shows bladder wall thickening with surrounding stranding which may represent sequela of cystitis. Urinalysis shows large occult blood with UTI Follow urine cultures Continue IV Rocephin 1 gm - day 2 As per patient, he has been using cefpodoxime 200 mg after the surgery from Apr 20, 2025 Patient uses finasteride 5 mg and Trospium 20 mg BID for spasms, will continue after patient tolerates oral feeding Urology, Dr. Sandy was consulted, he recommends speaking to the surgeon and medical records were requested, follow up Acute respiratory failure 2/2 Community acquired pneumonia covering gram negative and gram positive bacteria Possible aspiration pneumonia Bronchiectasis O2 saturation 94 % on 1 L NC Patient does not use O2 at home He is an active smoker- 1 pack/day for the past [address] shows right lower lobe pulmonary consolidation, tree-in-bud nodularity, and bronchiectatic changes with differential considerations including atypical infectious processes, aspiration. Continue IV rocephin 1 gm and IV zithromax 500 mg-day 2 IV Methylprednisolone 125 mg followed by IV methylprednisolone 40 mg b.i.d. Duonebs and incentive spirometry Follow up sputum cultures KAYLEEN, most likely intrinsic 2/2 acute tubular necrosis Creatinine downtrended from 4.5 to 4.1 BUN is 53 BUN/Cr is normal Fena - 1.7 % Urine sodium is 52 Continue NS at 100 ml/hr Monitor BMP Nephrology, Dr. Marquez was consulted, awaiting recommendations Hyperphosphatemia, improving Hypermagnesemia Phosphorus downtrended from 6.3 to 6 Magnesium downtrended from 3.1 to 2.6 Continue Sevelamer 800 mg TID after patient tolerates oral feeds Monitor electrolytes History of shingles Patient uses oxycodone at home Continue pain management as necessary, Strum 5 mg/10 mg p.r.n. Hypertension Blood pressure has stabilized Patient uses hydrochlorthiazide 25 mg, lisinopril 40 mg and metoprolol tartrate 25 mg BID at home We will continue home medications after patient tolerates oral feeds Consider holding lisinopril as eGFR is low IV hydralazine 10 mg p.r.n. if systolic BP > 180 History of stoke Patient uses aspirin 81 mg, atorvastatin 20 mg at home Held aspirin Goal LDL < 55 LDL 44, We will continue atorvastatin 20 mg after patient tolerates oral diet Code status: Full code DVT prophylaxis : SCD GI prophylaxis: Protonix drip Nutrition: NPO Physical therapy: ordered Analgesia/sedation: Tylenol, Strum 5 mg/10 mg p.r.n. Disposition: Continue IV antibiotics, NPO and NG tube, monitor bowel movements and H&H, patient will be getting EGD today by Dr. Hickman, awaiting medical records of the laparoscopic prostate resection surgery, awaiting Dr. Marquez recommendations, PT eval and DC plan Resident attestation The above note has been reviewed and supervised by a senior resident PGY2/PGY3 Patient was seen, examined and discussed with the attending physician, Dr. Aline Garcia MD Internal Medicine Resident, PGY 1 Date of Service: Apr 28, 2025 Billing Provider: CECY SHARMA MD, PREETHI, RES Apr 28, 2025 11:06
[2025-04-28] MEDS ORDERED: fentaNYL/PF 50MCG/1 ML 2ML syringe ONE (14:41)
[2025-04-28] MEDS ORDERED: MIDAZolam 1 MG/ML 5ML VIAL ONE (14:42)
[2025-04-28] MEDS: albuterol 2.5 MG/3 ML nebule NEB ONE (15:53)
[2025-04-28] MEDS ORDERED: HYDROmorphone/PF 0.2 MG/ML SYRINGE IV PRN (17:45)
[2025-04-28] MEDS: azithromycin/NS 500mg/250ml 250 ML IV SCH (17:48)
--- NOTE | 2025-04-28 17:55 | CONSULTATION REPORT ---
Consult Providers to CC ~ History of Present Illness Reason for Admit\Complaint: Hematuria and Hematemisis History of Present Illness This is a 80-year-old man with a history of BPH, hypertension, prior stroke on aspirin, and recent laparoscopic prostate resection who presents with acute kidney injury (KAYLEEN), persistent hematuria, hematemesis, and urinary retention. He has ongoing GI bleeding, is unable to void, and has not had a bowel movement since surgery. His labs show significant azotemia, hyperphosphatemia, hypocalcemia, hypoalbuminemia, and a high anion gap metabolic acidosis. Imaging reveals moderate pneumoperitoneum, colonic and small bowel distention, and lower lobe pulmonary consolidation. He is currently NPO with an NG tube, on broad- spectrum antibiotics, steroids, and supportive care. The etiology of his KAYLEEN is likely multifactorial, including pre-renal (volume depletion from GI losses and bleeding), post-renal (urinary retention/obstruction), and possible intrinsic factors (sepsis, nephrotoxic medications). His electrolyte abnormalities and metabolic derangements are consistent with advanced KAYLEEN and possible early uremia. He is at high risk for further complications given his age, comorbidities, and ongoing critical illness. Allergies: Coded Allergies: No Known Allergies (Unverified , 12/11/22) Home Medications Home Medications Active Reported Omeprazole 20 Mg Capsule.dr 1 Cap PO DAILY PRN 30 Days Trospium Chloride 20 Mg Tablet 1 Tab PO Q12H 30 Days Lopressor tablet (Metoprolol Tartrate) 25 Mg Tablet 1 Tab PO Q12H 30 Days Hold for SBP below 100mm Hg Hold for Heart Rate below 60. Hydrochlorothiazide 25 Mg Tab 1 Tab PO DAILY 30 Days Cefpodoxime Proxetil 100 Mg Tablet 200 Mg PO DAILY 7 Days Norvasc* (Amlodipine Besylate) 2.5 Mg Tablet 5 Mg PO DAILY 30 Days Baby Aspirin (Aspirin) 81 Mg Tab.chew 1 Tab PO DAILY Hydrochlorothiazide 25 Mg Tab 1 Tab PO DAILY Lipitor* (Atorvastatin Calcium) 20 Mg Tablet 1 Tablet PO HS Finasteride 5 Mg Tablet 1 Tab PO DAILY Oxycodone IR* (Oxycodone HCl) 5 Mg Tablet 1 Tab PO Q4H PRN Lisinopril* (Lisinopril) 40 Mg Tablet 1 Tab PO DAILY Past Medical History Past Medical History Reviewed Past Surgical History Surgical History Comment Reviewed ROS ROS All other systems negative by patient and family reports Exam Vitals: Vital Signs Date Time Temp Pulse Resp B/P (MAP) Pulse Ox O2 Delivery O2 Flow Rate FiO2 04/28/25 16:20 79 18 111/54 (73) 93 Nasal Cannula 3.0 04/28/25 15:51 40 04/28/25 10:00 98.7 Alert, some confusion RRR w/o murmur CTAB, no wheezes +BS, NT No edema Diagnostic Data Last Recorded Lab Results: 04/28/25 1038 04/28/25 0300 Diagnostic Data: I & O 04/28/25 07:00 Output Total 400 ml Balance -400 ml Output Urine Total 300 ml Drainage Total 100 ml Laboratory Tests Test 04/27/25 16:34 Prothrombin Time 10.7 SECONDS (9.0-12.0) INR International Normalized Ratio 1.0 INR Activated Partial Thromboplast Time 27 SECONDS (22-32) Coagulation Comments Problems: (1) Hematuria Assessment & Plan: Hematuria and Urinary Retention post-prostate resection Maintain Andujar catheter with continuous bladder irrigation if clots are present or hematuria persists. Monitor for signs of catheter blockage or bladder distention. Urology to evaluate for ongoing bleeding or possible surgical complications. Hold anticoagulation/antiplatelet therapy if possible, balancing stroke risk and bleeding risk. Monitor hemoglobin and hematocrit daily; transfuse if indicated for symptomatic anemia or hemodynamic instability. (2) Disorders of fluid, electrolyte, and acid-base balance Assessment & Plan: Electrolyte and Acid-Base Disturbances (hyperphosphatemia, hypocalcemia, high anion gap metabolic acidosis) Continue sevelamer for phosphate binding. Replete calcium as needed, considering corrected calcium for hypoalbuminemia. Monitor for symptoms of hypocalcemia (tetany, arrhythmias). Monitor acid-base status; consider bicarbonate therapy if severe acidosis and not volume overloaded. Monitor for hyperkalemia; treat if potassium rises further or if ECG changes develop. Volume Status and Fluid Management Assess volume status clinically and with labs; avoid both overload and dehydration. Adjust IV fluids as needed based on ongoing losses, urine output, and volume status. Monitor for signs of pulmonary edema, especially given underlying pneumonia and hypoxia. (3) Constipation Assessment & Plan: Constipation and Bowel Obstruction Continue bowel regimen as tolerated; consider rectal interventions if no improvement. Monitor for signs of bowel perforation or worsening obstruction. Surgical consult if clinical status deteriorates or if there is evidence of peritonitis. (4) Pulmonary consolidation determined by examination Assessment & Plan: Pulmonary consolidation (possible aspiration or atypical pneumonia) Continue current antibiotics (ceftriaxone, azithromycin) and steroids as indicated. Supportive respiratory care with oxygen, incentive spirometry, and bronchodilators. Monitor for respiratory decompensation; consider ICU transfer if worsening. (5) Acute kidney injury Status: Acute Assessment & Plan: Acute Kidney Injury (KAYLEEN), multifactorial (pre-renal, post- renal, possible intrinsic) Hold all nephrotoxic medications (NSAIDs, SARY inhibitors, ARBs, diuretics if possible). Continue to monitor urine output closely; maintain accurate I/O records. Assess for and relieve any ongoing urinary obstruction; ensure Andujar catheter is patent and functioning. Monitor daily renal function, electrolytes, and acid-base status. Adjust all medication dosing for current renal function. Consider early nephrology consultation for possible renal replacement therapy if there is worsening acidosis, hyperkalemia, volume overload, or uremic symptoms. Maintain euvolemia; avoid both volume overload and hypovolemia. Continue sevelamer for hyperphosphatemia; monitor calcium and phosphorus daily. Monitor for signs of uremia (encephalopathy, pericarditis, bleeding). Additional Plan General supportive care Monitor for delirium, infection, and pressure injuries. Early mobilization as tolerated. Nutritional support once GI status allows; consider renal-friendly nutrition if possible. Frequent reassessment and communication with primary and consulting teams. This patient is critically ill with multiple organ system involvement. The focus should be on stabilizing his renal function, controlling ongoing bleeding, managing electrolyte and acid-base disturbances, and providing comprehensive supportive care while addressing the underlying causes of his KAYLEEN and other complications. MELLO JACKSON III DO Apr 28, 2025 17:55
[2025-04-28] MEDS: HYDROmorphone inj. 0.5 MG/0.5 ML DISP.SYRIN IV PRN (18:04)
[2025-04-28 18:13] LABS: MEAN PLATELET VOLUME 8.6 FL (7.4-10.4); RED CELL DISTRIBUTION WIDTH 14.2 % (11.5-14.5)
[2025-04-28 18:25] LABS: CREATININE 3.91 MG/DL (0.60-1.10); TOTAL CARBON DIOXIDE 25.2 MMOL/L (24-32); eCRCL 14 ML/MIN; eGFR 15 ML/MIN
[2025-04-28] MEDS: methylPREDNISolone sod succ/PF 40mg inj. IV SCH (19:20)
[2025-04-28 22:17] LABS: MEAN PLATELET VOLUME 8.2 FL (7.4-10.4); RED CELL DISTRIBUTION WIDTH 14.3 % (11.5-14.5)
[2025-04-29] VITALS (16 sets, daily range): BP systolic 126–164; BP diastolic 58–74; PULSE 83–96; RESP 12–22; TEMP 97.8–98.7; O2SAT 92–100
[2025-04-29] MEDS ORDERED: HYDROmorphone/PF 0.2 MG/ML SYRINGE IV ONE (02:45)
[2025-04-29] MEDS: HYDROmorphone inj. 0.5 MG/0.5 ML DISP.SYRIN IV ONE (03:05)
[2025-04-29 03:33] LABS: MEAN PLATELET VOLUME 8.7 FL (7.4-10.4); RED CELL DISTRIBUTION WIDTH 13.9 % (11.5-14.5)
[2025-04-29 03:43] LABS: CREATININE 3.96 MG/DL (0.60-1.10); PHOSPHORUS 5.5 MG/DL (2.3-4.5); TOTAL CARBON DIOXIDE 20.8 MMOL/L (24-32); eCRCL 14 ML/MIN; eGFR 15 ML/MIN
[2025-04-29 04:23] LABS: CREATININE,URINE RANDOM 77.0 MG/DL; UA UREA RANDOM 397.0 MG/DL
[2025-04-29 09:42] LABS: MEAN PLATELET VOLUME 8.3 FL (7.4-10.4); RED CELL DISTRIBUTION WIDTH 14.1 % (11.5-14.5)
[2025-04-29] MEDS: morphine 4 MG/ML inj SYRINge IV PRN (10:11)
--- NOTE | 2025-04-29 10:56 | RADIOLOGY REPORT ---
INDICATION: ACUTE KIDNEY INJURY TECHNIQUE: Multiple real-time sonographic images of the kidneys and bladder were obtained. COMPARISON: None FINDINGS: The right kidney measures 9 cm in length, which is normal in size. There is normal echogenicity of the right kidney. No hydronephrosis. The left kidney measures 8 cm in length, which is normal in size. There is normal echogenicity of the left kidney. No hydronephrosis. Urinary bladder is decompressed with Andujar catheter. IMPRESSION: 1. Normal sonographic appearance of the kidneys. No hydronephrosis.
--- NOTE | 2025-04-29 11:15 | PROGRESS NOTE- Residence ---
Progress Note - Resident Providers to CC Resident Creating Document: NABILA GARCIA RES ~ Antibiotic Timeout Antibiotic Ordered?: Yes Subjective Patient was seen and examined bedside. He has persistent lower abdominal pain. He had an episode of vomiting today morning which was nonbloody. He refused the NG tube yesterday after EGD. He was explained about the benefits and necessity of NG tube placement, patient agreed and NG tube was placed which drained 600 mL of bilious and brownish fluid. He did not have a bowel movement yet but is passing gas, and faint bowel sounds are heard. Hematuria has resolved, he has clear urine in Brody's bag. He denies shortness of breath, fever, chills or any other acute complaints. He is saturating well on room air. Objective Vital Signs Date Time Temp Pulse Resp B/P (MAP) Pulse Ox O2 Delivery O2 Flow Rate FiO2 04/29/25 10:11 14 04/29/25 07:58 95 95 Room Air* 0 21 04/29/25 06:00 98.7 134/60 (84) Result Diagram: 04/29/25 0929 04/29/25 0300 Awake, alert, and oriented x4, resting comfortably in the bed, in mild distress, Brody's tube and NG tube in place HEENT: Atraumatic, normocephalic, EOMI, anicteric sclera ; pink conjunctiva, dry mucous membranes Neck: Trachea midline. Supple, full range of motion, no JVD Cardiac: Regular rhythm, regular rate with no murmurs all over the precordium. Respiratory: Equal breath sounds bilaterally, no tachypnea, no wheezing ,rub or rales, Chest wall is symmetric and without deformity. Gastrointestinal: 2 cm horizontal scars and 4 cm vertical scar present over abdomen, with no discharge and surrounding skin is normal. Abdomen non- distended, soft, tenderness present in lower abdomen, faint bowel sounds heard, no hepatosplenomegaly Musculoskeletal: No pedal edema, no cyanosis Neurological: Speech is clear, alert, and oriented x 4. No motor or sensory deficit, deep tendon reflexes normal, cerebellar intact. Cranial nerves II-XII intact. Skin: Warm and dry Coagulation Studies Laboratory Tests Test 04/27/25 16:34 Prothrombin Time 10.7 SECONDS (9.0-12.0) INR International Normalized Ratio 1.0 INR Activated Partial Thromboplast Time 27 SECONDS (22-32) Coagulation Comments Assessment Assessment 80-year-old male with history of hypertension, BPH, laparoscopic prostate resection on April 20, 2025 admitted for management of SBO. Plan Plan Post op ileus vs SBO Patient did not have bowel movement after the laparoscopic prostate resection surgery on Apr 20, 2025 He has been passing gas Faint bowel sounds heard Lower abdominal tenderness present WBC is elevated, currently downtrending from 15.7 to 12.4 Lactic acid is elevated - 3.5, procalcitonin is normal Abdomen CT (04/27/25) showed moderate pneumoperitoneum, free air within pelvis which could be secondary to recent laparoscopic surgery, large volume stool within the colon. moderate distension of small bowel loops with fecal like contents upto 3 cm, gastric distension. He refused NG tube yesterday after EGD, NG tube was placed today in the morning which drained 600 mL of bilious fluid NS at 120 ml/hr Continue IV pantoprazole 40 mg b.i.d. Continue patient on NPO Dr. White was consulted, awaiting recommendations Monitor bowel movements, monitor glucose Hematemesis, resolved Normocytic normochromic anemia Patient underwent EGD yesterday by Dr. Hickman EGD showed LA grade B esophagitis with no active bleeding at the distal esophagus with 1 or more mucosal breaks greater than 5 mm, not extending between the tops of 2 mucosal folds, congested and erythematous mucosa in the gastric body and antrum which was biopsied and no blood was seen in the stomach Patient is not on anticoagulants, he is on aspirin 81 mg 2/2 history of stroke, held aspirin He had another episode of vomiting today morning which was nonbloody He refused NG tube yesterday after EGD, he was explained about the benefits in the necessity of NG tube placement, patient accepted, NG tube was placed and drained 600 mL of bilious fluid H/H is 8.6/25.9 On IV pantoprazole 40 mg b.i.d. Continue NPO Monitor H/H Q6h PRBC transfusion if Hb < 7 Hematuria, resolved UTI due to indwelling brody's catheter BPH s/p laparoscopic prostate resection on Apr 20, 2025 at [facility] Patient denies history of prostate cancer He has brody's in place which has clear urine CT (04/27/25) showed bladder wall thickening with surrounding stranding which may represent sequela of cystitis, and free air within the pelvis which is secondary to recent surgery Urinalysis showed large occult blood with UTI Follow urine cultures Continue IV Rocephin 1 gm - day 3 As per patient, he has been using cefpodoxime 200 mg after the surgery from Apr 20, 2025 Patient uses finasteride 5 mg and Trospium 20 mg BID for spasms, will continue after patient tolerates oral feeding Urology, Dr. Sandy was consulted, he recommends speaking to the surgeon and medical records were requested, awaiting for records Acute respiratory failure 2/2 Community acquired pneumonia covering gram negative and gram positive bacteria Possible aspiration pneumonia Bronchiectasis SIRS criteria not met He is saturating well on room air He is an active smoker- 1 pack/day for the past [address] (04/27/25) showed right lower lobe pulmonary consolidation, tree-in-bud nodularity, and bronchiectatic changes with differential considerations including atypical infectious processes, aspiration. Continue IV rocephin 1 gm and IV zithromax 500 mg-day 3 Continue IV methylprednisolone 40 mg b.i.d. Duonebs and incentive spirometry KAYLEEN, most likely multifactorial etiology prerenal ( due to GI loss and bleeding ), intrinsic 2/2 acute tubular necrosis, post renal (urinary retention/obstruction) Hyperphosphatemia, improving Hypocalcemia Non-anion gap Metabolic acidosis Creatinine downtrending currently at 3.96 BUN is 59 BUN/Cr is normal Fena - 1.7 %, which is indeterminate Urine sodium is 52 NS at 120 ml/hr Strict I's and os Monitor BMP Phosphorus is downtrending, currently at 5.5 Sevelamer 800 mg t.i.d. once patient tolerates oral feeds Calcium is 7.5, corrected calcium is 8.9 which is normal Bicarbonate is 20.8, we will consider bicarbonate drip if bicarbonate < 15 Monitor for signs of uremia (encephalopathy, bleeding, pericarditis) Avoid nephrotoxic agents Renal ultrasound shows no hydronephrosis Nephrology, Dr. Marquez was consulted, and recommended to continue fluids and monitor electrolytes and acid base status Hypermagnesemia Magnesium downtrending, currently at 2.6 Monitor BMP History of shingles Patient uses oxycodone at home Continue pain management as necessary, morphine 1 mg/2 mg p.r.n Hypertension Blood pressure has stabilized Patient uses hydrochlorthiazide 25 mg, lisinopril 40 mg and metoprolol tartrate 25 mg BID at home We will continue home medications after patient tolerates oral feeds Hold lisinopril as eGFR is low IV hydralazine 10 mg p.r.n. if systolic BP > 180 History of stoke Patient uses aspirin 81 mg, atorvastatin 20 mg at home Held aspirin Goal LDL < 55 LDL 44, We will continue atorvastatin 20 mg after patient tolerates oral diet Severe malnutrition BMI-19.1 Kg/m2 Code status: Full code DVT prophylaxis : SCD GI prophylaxis: IV pantoprazole 40 mg b.i.d. Nutrition: NPO Physical therapy: ordered Analgesia/sedation: morphine 1 mg/2 mg p.r.n Disposition: Continue IV antibiotics, NPO and NG tube, monitor bowel movements and H&H, awaiting Dr. White recommendations and medical records of the laparoscopic prostate resection surgery at [facility], PT eval and DC plan Resident attestation The above note has been reviewed and supervised by a senior resident PGY2/PGY3 Patient was seen, examined and discussed with the attending physician, Dr. Aline Garcia MD Internal Medicine Resident, PGY 1 Date of Service: Apr 29, 2025 Billing Provider: CECY SHARMA MD, PREETHI, RES Apr 29, 2025 11:15
[2025-04-29 15:34] LABS: MEAN PLATELET VOLUME 8.5 FL (7.4-10.4); RED CELL DISTRIBUTION WIDTH 14.2 % (11.5-14.5)
[2025-04-29 15:51] LABS: UA COLLECTION TYPE NON-SPECIFIED
[2025-04-29 16:01] LABS: SQUAMOUS EPITHELIAL CELL,UR FEW /LPF (FEW)
[2025-04-29 16:04] LABS: CREATININE,URINE RANDOM 82.0 MG/DL; UA UREA RANDOM 454.0 MG/DL; YEAST MODERATE /HPF (NEGATIVE)
--- NOTE | 2025-04-29 16:17 | PROGRESS NOTE ---
Progress Note ID Providers to CC ~ Progress Note Progress Note: pt seen and examined-ct ordered WICHO SANDERS MD Apr 29, 2025 16:17
[2025-04-29] MEDS ORDERED: diatr meglu/diatrizoate 30ml oral sol.-(3 dose) bottle ONE (16:45)
--- NOTE | 2025-04-29 17:37 | PROGRESS NOTE ---
Progress Note Dictate Providers to CC ~ Progress Note: This is a 80-year-old man with a history of BPH, hypertension, prior stroke on aspirin, and recent laparoscopic prostate resection who presents with acute kidney injury (KAYLEEN), persistent hematuria, hematemesis, and urinary retention. He has ongoing GI bleeding, is unable to void, and has not had a bowel movement since surgery. His labs show significant azotemia, hyperphosphatemia, hypocalcemia, hypoalbuminemia, and a high anion gap metabolic acidosis. Imaging reveals moderate pneumoperitoneum, colonic and small bowel distention, and lower lobe pulmonary consolidation. He is currently NPO with an NG tube, on broad- spectrum antibiotics, steroids, and supportive care. The etiology of his KAYLEEN is likely multifactorial, including pre-renal (volume depletion from GI losses and bleeding), post-renal (urinary retention/obstruction), and possible intrinsic factors (sepsis, nephrotoxic medications). His electrolyte abnormalities and metabolic derangements are consistent with advanced KAYLEEN and possible early uremia. He is at high risk for further complications given his age, comorbidities, and ongoing critical illness. Antibiotic Ordered?: N/A Subjective Subjective Some confusion today, but stable otherwise, improved renal function Objective Vitals Vital Signs Date Time Temp Pulse Resp B/P (MAP) Pulse Ox O2 Delivery O2 Flow Rate FiO2 04/29/25 15:43 89 16 94 Room Air* 0 21 04/29/25 10:00 98.4 126/60 (82) RRR w/o murmur CTAB +BS, NT No edema Lab Results: 04/29/25 1521 04/29/25 0300 Coagulation Studies Laboratory Tests Test 04/27/25 16:34 Prothrombin Time 10.7 SECONDS (9.0-12.0) INR International Normalized Ratio 1.0 INR Activated Partial Thromboplast Time 27 SECONDS (22-32) Coagulation Comments Problem\Assessment\Plan Problems/Diagnosis: (1) Hematuria Assessment & Plan: Hematuria and Urinary Retention post-prostate resection Maintain Andujar catheter with continuous bladder irrigation if clots are present or hematuria persists. Monitor for signs of catheter blockage or bladder distention. Urology to evaluate for ongoing bleeding or possible surgical complications. Hold anticoagulation/antiplatelet therapy if possible, balancing stroke risk and bleeding risk. Monitor hemoglobin and hematocrit daily; transfuse if indicated for symptomatic anemia or hemodynamic instability. (2) Disorders of fluid, electrolyte, and acid-base balance Assessment & Plan: Electrolyte and Acid-Base Disturbances (hyperphosphatemia, hypocalcemia, high anion gap metabolic acidosis) Continue sevelamer for phosphate binding. Replete calcium as needed, considering corrected calcium for hypoalbuminemia. Monitor for symptoms of hypocalcemia (tetany, arrhythmias). Monitor acid-base status; consider bicarbonate therapy if severe acidosis and not volume overloaded. Monitor for hyperkalemia; treat if potassium rises further or if ECG changes develop. Volume Status and Fluid Management Assess volume status clinically and with labs; avoid both overload and dehydration. Adjust IV fluids as needed based on ongoing losses, urine output, and volume status. Monitor for signs of pulmonary edema, especially given underlying pneumonia and hypoxia. (3) Constipation Assessment & Plan: Constipation and Bowel Obstruction Continue bowel regimen as tolerated; consider rectal interventions if no improvement. Monitor for signs of bowel perforation or worsening obstruction. Surgical consult if clinical status deteriorates or if there is evidence of peritonitis. (4) Pulmonary consolidation determined by examination Assessment & Plan: Pulmonary consolidation (possible aspiration or atypical pneumonia) Continue current antibiotics (ceftriaxone, azithromycin) and steroids as indicated. Supportive respiratory care with oxygen, incentive spirometry, and bronchodilators. Monitor for respiratory decompensation; consider ICU transfer if worsening. (5) Acute kidney injury Assessment & Plan: Acute Kidney Injury (KAYLEEN), multifactorial (pre-renal, post- renal, possible intrinsic) Improving slowly Hold all nephrotoxic medications (NSAIDs, SARY inhibitors, ARBs, diuretics if possible). Continue to monitor urine output closely; maintain accurate I/O records. Assess for and relieve any ongoing urinary obstruction; ensure Andujar catheter is patent and functioning. Monitor daily renal function, electrolytes, and acid-base status. Adjust all medication dosing for current renal function. Consider early nephrology consultation for possible renal replacement therapy if there is worsening acidosis, hyperkalemia, volume overload, or uremic symptoms. Maintain euvolemia; avoid both volume overload and hypovolemia. Continue sevelamer for hyperphosphatemia; monitor calcium and phosphorus daily. Monitor for signs of uremia (encephalopathy, pericarditis, bleeding). MELLO JACKSON III DO Apr 29, 2025 17:37
--- NOTE | 2025-04-29 18:14 | RADIOLOGY REPORT ---
Indication: pain Technique: CT axial images of the abdomen and pelvis are obtained without contrast. Coronal and sagittal reformats were obtained. Radiation Dose Information: CTDI volume is 10.5 mGy. Dose-length product is 605 mGy*cm Comparison: 04/27/2025 FINDINGS: There is limited interpretation of the abdomen and pelvis without administration of intravenous contrast. Lung bases demonstrate bilateral lower lobe consolidation, atelectasis. Adrenal glands, spleen, pancreas and liver unremarkable in shape. The kidneys demonstrate no hydronephrosis /nephrolithiasis. Gastric distention. Rectal catheter and contrast. Colonic diverticular disease. The contrast only reaches the sigmoid colon. Extensive colonic diverticular disease. Moderate volume stool throughout the colon. The mid to distal small bowel loops are relatively nondilatedm. The proximal to mid small bowel loops are dilated up to a proximally 3.6 cm. Again noted is pneumoperitoneum which appears slightly less pronounced than on the previous examination. Abdominal aortic atherosclerotic disease. 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 Bladder decompressed by Andujar catheter. Free air again noted within the pelvis. The osseous structures are stable. IMPRESSION: Limited evaluation without contrast. Rectal contrast only extends to the sigmoid colon, limiting evaluation. Pneumoperitoneum again is noted, slightly less pronounced than on prior examination. Again, this could be postoperative in nature, secondary to perforated bowel/ viscus. Correlate clinically. Recommend surgical consultation. The proximal to mid small bowel loops are abnormally dilated to 3.6 cm. The mid to distal small bowel loops are relatively nondilated. Differential considerations would include ileus, small-bowel obstruction. Correlate clinically. Recommend surgical consultation. Small-bowel series with water-soluble contrast can be obtained to further evaluate Gastric distention. Moderate volume stool within the colon. Colonic diverticular disease. Atherosclerotic disease. 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 Bilateral lower lobe pulmonary airspace consolidation, atelectasis. Other findings as described.
[2025-04-29] MEDS: diatr meglu/diatrizoate 30ml oral sol.-(3 dose) bottle PO SCH ×2 (20:25)
[2025-04-29 21:40] LABS: MEAN PLATELET VOLUME 8.2 FL (7.4-10.4); RED CELL DISTRIBUTION WIDTH 13.9 % (11.5-14.5)
[2025-04-30] VITALS (26 sets, daily range): BP systolic 131–188; BP diastolic 49–89; PULSE 83–112; RESP 10–20; TEMP 97.5–98.7; O2SAT 90–98
[2025-04-30 03:47] LABS: MEAN PLATELET VOLUME 8.4 FL (7.4-10.4); RED CELL DISTRIBUTION WIDTH 14.3 % (11.5-14.5)
[2025-04-30 03:57] LABS: CREATININE 3.74 MG/DL (0.60-1.10); PHOSPHORUS 5.3 MG/DL (2.3-4.5); TOTAL CARBON DIOXIDE 22.6 MMOL/L (24-32); eCRCL 14 ML/MIN; eGFR 16 ML/MIN
[2025-04-30] MEDS: Chloraseptic (Phenol) Spray 177ml MM PRN (09:35)
[2025-04-30 09:58] LABS: MEAN PLATELET VOLUME 8.0 FL (7.4-10.4); RED CELL DISTRIBUTION WIDTH 14.5 % (11.5-14.5)
[2025-04-30 15:08] LABS: MEAN PLATELET VOLUME 8.3 FL (7.4-10.4); RED CELL DISTRIBUTION WIDTH 14.3 % (11.5-14.5)
[2025-04-30] MEDS: ondansetron/PF 4mg/2ml inj IV PRN (15:13)
--- NOTE | 2025-04-30 16:59 | RADIOLOGY REPORT ---
Indication: pain Technique: CT axial images of the abdomen and pelvis are obtained without contrast. Coronal and sagittal reformats were obtained. Radiation Dose Information: CTDI volume is 14 mGy. Dose-length product is 773 mGy*cm Comparison: CT CT ABDOMEN PELVIS W/ RECTAL CON CONTRAST on DOS: 04/29/25 FINDINGS: There is limited interpretation of the abdomen and pelvis without administration of intravenous contrast. Bilateral lower lobe consolidation and atelectasis. Adrenal glands, spleen unremarkable in shape. Pancreas unremarkable in shape. Liver unremarkable in shape. No CT evidence for cholelithiasis. Kidneys demonstrate no hydronephrosis / nephrolithiasis. Marked gastric distention.m the proximal to mid small bowel loops are abnormally dilated up to a proximally 4 cm. The mid to distal small bowel loops are nondistended. Narrowing of the mid small bowel loops, axial image 69 with Fecal like contents. Moderate volume stool within the colon. Colonic diverticular disease. Normal appendix. Abdominal aortic atherosclerotic disease. Dilatation of the infrarenal abdominal aorta again noted. Bladder decompressed by Andujar catheter. Bladder wall thickening with surrounding stranding. No inguinal lymphadenopathy Small amount of pneumoperitoneum, decreased. Small amount of free air within the pelvis, decreased. Soft tissue edema /anasarca. IMPRESSION: Limited evaluation without contrast. Marked gastric distention and dilatation of the proximal to mid small bowel loops with collapse/ non distention of the distal small bowel loops. These findings could represent again small-bowel obstruction, severe ileus. Recommend surgical consultation for further evaluation. Moderate volume stool with the colon. Colonic diverticular disease. Pneumoperitoneum decreased from previous examination. Bilateral lower lobe pulmonary airspace consolidation, atelectasis. Bladder wall thickening with surrounding stranding may represent sequela of cystitis. Other findings as described.
[2025-04-30] MEDS: hydrALAZINE 20mg/ml inj. IV PRN (18:11)
[2025-04-30] MEDS ORDERED: morphine 4 MG/ML inj SYRINge IV PRN ×2 (18:35)
[2025-04-30] MEDS ORDERED: fentaNYL/PF 50MCG/1 ML 2ML syringe IV PRN (18:35)
[2025-04-30] MEDS ORDERED: ondansetron/PF 4mg/2ml inj IV PRN ×2 (18:35→20:45)
[2025-04-30] MEDS ORDERED: enalaprilat 1.25mg/ml 2ml vial IV PRN (18:35)
[2025-04-30] MEDS ORDERED: HYDROmorphone inj. 0.5 MG/0.5 ML DISP.SYRIN IV PRN (18:35)
--- NOTE | 2025-04-30 18:54 | PROGRESS NOTE ---
Progress Note ID Providers to CC ~ Progress Note Progress Note: discussed procedure including risks/benefits/alternatives WICHO SANDERS MD Apr 30, 2025 18:54
--- NOTE | 2025-04-30 19:17 | PROGRESS NOTE- Residence ---
Progress Note - Resident Providers to CC Resident Creating Document: NABILA GARCIA RES ~ Antibiotic Timeout Antibiotic Ordered?: Yes Subjective Patient was seen and examined bedside. He reports persistent lower abdominal pain. He denies nausea or vomiting. He pulled out the NG tube yesterday. He did not have a bowel movement yet and he states that he has not been passing gas today. There is no blood in urine. He denies fever, chills and any other new complaints. Objective Vital Signs Date Time Temp Pulse Resp B/P (MAP) Pulse Ox O2 Delivery O2 Flow Rate FiO2 04/30/25 18:33 112 18 95 04/30/25 17:50 175/74 (107) 04/30/25 17:49 98.7 Room Air 04/30/25 14:46 0.0 21 Result Diagram: 04/30/25 1457 04/30/25 0329 Awake, alert, and oriented x4, in mild distress, Brody's tube in place HEENT: Atraumatic, normocephalic, EOMI, anicteric sclera ; pink conjunctiva, dry mucous membranes Neck: Trachea midline. Supple, full range of motion, no JVD Cardiac: Regular rhythm, regular rate with no murmurs all over the precordium. Respiratory: Equal breath sounds bilaterally, no tachypnea, no wheezing ,rub or rales, Chest wall is symmetric and without deformity. Gastrointestinal: 2 cm horizontal scars and 4 cm vertical scar present over abdomen, with no discharge and surrounding skin is normal. Abdomen non- distended, soft, tenderness present in lower abdomen, faint bowel sounds heard, no hepatosplenomegaly Musculoskeletal: No pedal edema, no cyanosis Neurological: Speech is clear, alert, and oriented x 4. No motor or sensory deficit, deep tendon reflexes normal, cerebellar intact. Cranial nerves II-XII intact. Skin: Warm and dry Coagulation Studies Laboratory Tests Test 04/27/25 16:34 Prothrombin Time 10.7 SECONDS (9.0-12.0) INR International Normalized Ratio 1.0 INR Activated Partial Thromboplast Time 27 SECONDS (22-32) Coagulation Comments Assessment Assessment 80-year-old male with history of hypertension, BPH, laparoscopic prostate resection on April 20, 2025 admitted for management of SBO. Plan Plan Post op SBO (laparoscopic prostate resection surgery on Apr 20, 2025) Patient did not have bowel movement after the laparoscopic prostate resection surgery on Apr 20, 2025 He has not been passing gas today Faint bowel sounds heard Lower abdominal tenderness present WBC is normal Abdomen CT (04/27/25) showed moderate pneumoperitoneum, free air within pelvis which could be secondary to recent laparoscopic surgery, large volume stool within the colon. moderate distension of small bowel loops with fecal like contents upto 3 cm, gastric distension. He pulled out the NG tube yesterday NS at 120 ml/hr Continue IV pantoprazole 40 mg b.i.d. Continue patient on NPO Abdomen CT with rectal contrast (04/30/25): -pneumoperitoneum again, slightly less pronounced than on prior examination, which could be due to recent surgery. -The rectal contrast extended only to the sigmoid colon, limiting evaluation. -The proximal to mid small bowel loops are abnormally dilated to 3.6 cm. -The mid to distal small bowel loops are relatively nondilated. -Moderate volume stool within the colon. Abdomen CT without contrast (04/30/25): -Marked gastric distention, the proximal to mid small bowel loops are abnormally dilated up to a proximally 4 cm. The mid to distal small bowel loops are nondistended. Narrowing of the mid small bowel loops, axial image 69 with Fecal like contents. -Moderate volume stool within the colon. Colonic diverticular disease. Normal appendix. -Small amount of pneumoperitoneum, decreased. Small amount of free air within the pelvis, decreased. Patient will be undergoing exploratory laparotomy today by Dr. White. Hematemesis, resolved Normocytic normochromic anemia EGD Dr. Hickman showed LA grade B esophagitis with no active bleeding at the distal esophagus with 1 or more mucosal breaks greater than 5 mm, not extending between the tops of 2 mucosal folds, congested and erythematous mucosa in the gastric body and antrum which was biopsied and no blood was seen in the stomach Patient is not on anticoagulants, he is on aspirin 81 mg 2/2 history of stroke, held aspirin He pulled out the NG tube yesterday, he has no N/V H/H is 9.1/27.5 On IV pantoprazole 40 mg b.i.d. Continue NPO Monitor H/H Q6h PRBC transfusion if Hb < 7 Hematuria, resolved UTI due to indwelling brody's catheter BPH s/p laparoscopic prostate resection on Apr 20, 2025 at [facility] Patient denies history of prostate cancer He has brody's in place which has clear urine CT (04/27/25) showed bladder wall thickening with surrounding stranding which may represent sequela of cystitis, and free air within the pelvis which is secondary to recent surgery Urinalysis showed large occult blood with UTI Urine cultures show no growth after 2 days Continue IV Rocephin 1 gm - day 4 As per patient, he has been using cefpodoxime 200 mg after the surgery from Apr 20, 2025 Patient uses finasteride 5 mg and Trospium 20 mg BID for spasms, will continue after patient tolerates oral feeding Monitor for bleeding , consider continuous bladder irrigation in the event of hematuria Acute respiratory failure 2/2 Community acquired pneumonia covering gram negative and gram positive bacteria Possible aspiration pneumonia Bronchiectasis SIRS criteria not met He is saturating well on room air He is an active smoker- 1 pack/day for the past [address] (04/27/25) showed right lower lobe pulmonary consolidation, tree-in-bud nodularity, and bronchiectatic changes with differential considerations including atypical infectious processes, aspiration. Continue IV rocephin 1 gm and IV zithromax 500 mg-day 4 Continue IV methylprednisolone 40 mg b.i.d. Duonebs and incentive spirometry KAYLEEN, most likely multifactorial etiology prerenal ( due to GI loss and bleeding ), intrinsic 2/2 acute tubular necrosis, post renal (urinary retention/obstruction) Hyperphosphatemia, improving Hypocalcemia Non-anion gap Metabolic acidosis Creatinine downtrending currently at 3.74 BUN is 66 BUN/Cr is normal Fena - 1.7 %, which is indeterminate Urine sodium is 52 NS at 120 ml/hr Strict I's and os Monitor BMP Phosphorus is downtrending, currently at 5.3 Sevelamer 800 mg t.i.d. once patient tolerates oral feeds Calcium is 7.5, corrected calcium is 8.9 which is normal Bicarbonate has uptrended from 20.8 to 22.6, consider bicarbonate drip if bicarbonate < 15 Monitor for signs of uremia (encephalopathy, bleeding, pericarditis) Avoid nephrotoxic agents Renal ultrasound shows no hydronephrosis Nephrology, Dr. Marquez was consulted, and recommended to continue fluids and monitor electrolytes and acid base status Hypermagnesemia Magnesium is 2.7 Monitor BMP History of shingles Patient uses oxycodone at home Continue pain management as necessary, morphine 1 mg/2 mg p.r.n Hypertension Blood pressure is on the higher side Patient uses hydrochlorthiazide 25 mg, lisinopril 40 mg and metoprolol tartrate 25 mg BID at home We will continue home medications after patient tolerates oral feeds Hold lisinopril as eGFR is low IV hydralazine 10 mg p.r.n. if systolic BP > 180 History of stoke Patient uses aspirin 81 mg, atorvastatin 20 mg at home Held aspirin Goal LDL < 55 LDL 44, We will continue atorvastatin 20 mg after patient tolerates oral diet Severe malnutrition BMI-19.1 Kg/m2 Code status: Full code DVT prophylaxis : SCD GI prophylaxis: IV pantoprazole 40 mg b.i.d. Nutrition: NPO Physical therapy: ordered Analgesia/sedation: morphine 1 mg/2 mg p.r.n Disposition: Patient will be undergoing exploratory laparotomy today by Dr. White, Monitor bowel movements, PT eval and DC plan Resident attestation The above note has been reviewed and supervised by a senior resident PGY2/PGY3 Patient was seen, examined and discussed with the attending physician, Dr. Aline Garcia MD Internal Medicine Resident, PGY 1 Date of Service: Apr 30, 2025 Billing Provider: CECY SHARMA MD, PREETHI, RES Apr 30, 2025 19:17
[2025-04-30] MEDS ORDERED: midazolam 1 mg/ML 2ml injection ONE (19:28)
[2025-04-30] MEDS ORDERED: fentaNYL /PF 50mcg/ml 5ml ampule ONE (19:28)
[2025-04-30] MEDS ORDERED: rocuronium 10mg/ml inj IV ONE ×2 (19:45→20:46)
[2025-04-30] MEDS ORDERED: labetalol 20mg/4ml (5mg/ml) syringe IV ONE (19:49)
[2025-04-30] MEDS ORDERED: BUPIVAcaine 2.5mg/ml inj 50ml vial (contains preservative) ONE (20:26)
[2025-04-30] MEDS ORDERED: morphine 10mg/ml inj. ONE (20:40)
--- NOTE | 2025-04-30 20:41 | OPERATIVE REPORT ---
Operative Report Providers to CC ~ Date of Procedure: Apr 30, 2025 Pre-Operative Diagnosis: sbo Post-Operative Diagnosis SAME as PRE-Op Procedure Performed ex lap/small bowel resection Surgeon: darrius Frame Aligner none Anesthesiologist: Myles Chand Findings: sbo secondary diffuse intraluminal solidified stool in small bowel Estimated Blood Loss: 100 ml Specimen Removed: small bowel WICHO SANDERS MD Apr 30, 2025 20:41
[2025-04-30] MEDS ORDERED: acetaminophen 1,000mg/100ml IV 100 ML IV ONE (20:44)
[2025-04-30] MEDS ORDERED: PCA WASTE DOCUMENTATION 1 MG ML MC SCH (20:45)
[2025-04-30] MEDS ORDERED: propofol inj 20 ML IV ONE (20:46)
[2025-04-30] MEDS: HYDROmorphone inj. 0.5 MG/0.5 ML DISP.SYRIN IV PRN (20:56)
[2025-04-30] MEDS: fentaNYL/PF 50MCG/1 ML 2ML syringe IV PRN (21:06)
--- NOTE | 2025-04-30 21:13 | OPERATIVE REPORT ---
DATE OF SURGERY: 04/30/2025 DICTATING PHYSICIAN: Brian White MD PREOPERATIVE DIAGNOSIS: Small bowel obstruction. POSTOPERATIVE DIAGNOSIS: Small bowel obstruction. PROCEDURES PERFORMED: Laparotomy. Small bowel resection. SURGEON: Brian White MD SALES ROUTE DRIVER HELPER: None. ANESTHESIA: General. DRAINS. None. INDICATIONS FOR OPERATION: A 80-year-old male with abdominal pain and lack of BM. Initial CAT scan revealed dilated loop of small bowel as well as stool in the colon. Over the course of the next day or two, small bowel loops remained more dilated with evidence of distal obstruction. The patient was taken to surgery for laparotomy. INTRAOPERATIVE FINDINGS: The patient had diffuse, solidified stool in the distal small bowel resulting in a complete small bowel obstruction. The small bowel was very narrowed and unlikely to open up. DESCRIPTION OF PROCEDURE: The patient was placed supine on the operating table. After induction of general anesthesia and placement of an endotracheal tube, the abdomen was prepped and draped. The abdomen was entered through a midline incision. The abdomen was explored. The patient had a long segment of small bowel with inspissated stool causing a complete small bowel obstruction. There were dilated loops of small bowel proximally. The segment of small bowel involved was removed. The small bowel was divided distally approximately 8-10 cm proximal to the ileocecal valve. Small bowel mesentery was divided using LigaSure device. A [id number] anastomosis was constructed using a DOMINGO 65 stapler and the common enterotomy was closed with a TA60. The mesenteric defect was closed with 3-0 silk sutures. The abdomen was then copiously irrigated and washed with antibiotic-containing solution. The rectus fascia was closed with running suture of looped PDS suture. NG tube position was confirmed. The skin was closed with clips. A dressing was applied. The patient was transferred to the recovery room in stable condition. Brian White MD TID: [id number] RECEIPT: [id number] MADDY/JOSE
--- NOTE | 2025-04-30 21:15 | RADIOLOGY REPORT ---
EXAM: DI OR FOREIGN BODY HISTORY: MISSING NEEDLE COMPARISON: CT CT ABDOMEN PELVIS W/ ORAL CONTRAST on DOS: 04/30/25 TECHNIQUE: Supine view of the abdomen FINDINGS/IMPRESSION: Nonobstructive bowel gas pattern noted. There is no evidence for pneumoperitoneum. No abnormal calcifications noted. Moderate to severe stool burden. Postsurgical changes with overlying surgical clips of the midline. Correlate for constipation.
[2025-04-30 22:20] LABS: ABG BASE EXCESS -16.6 mmol/L (-2.0-3.0); ABG HCO3 11.6 mmol/L (21.0-28.0); ABG OXYGEN SATURATION 97.2 % (94.0-98.0); ABG PCO2 (T) 35.9 mmHg (35.0-48.0); ABG PH (T) 7.125 (7.350-7.450); ABG PO2 (T) 121.3 mmHg (83.0-108.0); FCOHb 0.6 % (0.5-1.5); FHHb 2.8 % (0.0-5.0); FIO2 40.0 mmHg/%; FMetHb 0.3 % (0.0-1.5); FO2Hb 96.3 % (94.0-98.0); PATIENT TEMPERATURE 36.5; TOTAL HEMOGLOBIN 9.4 G/dl (13.5-17.5)
[2025-04-30] MEDS ORDERED: sodium bicarbonate (8.4%) inj. 150 MEQ in sodium chloride 0.45% 850 ML IV SCH (22:25)
[2025-04-30] MEDS: ringers solution, lacted 1,000 ML IV SCH (22:40)
--- NOTE | 2025-04-30 22:49 | RADIOLOGY REPORT ---
CLINICAL HISTORY: post op aspiration TECHNIQUE: AP view of the chest was obtained. WID: COMPARISON: CT CT CHEST ABDOMEN PELVIS on DOS: 04/27/25 FINDINGS: Lungs: Hazy opacification within the left lower lobe. Cardiomediastinal silhouette: normal in size Bones: No acute osseous abnormality. Imaged Upper Abdomen: Suction type enteric tube side hole projects at the gastroesophageal junction.. IMPRESSION: Hazy left lower lobe opacity which may represent early aspiration
[2025-04-30 22:53] LABS: MEAN PLATELET VOLUME 8.5 FL (7.4-10.4); RED CELL DISTRIBUTION WIDTH 14.6 % (11.5-14.5)
[2025-04-30 23:01] LABS: CREATININE 3.53 MG/DL (0.60-1.10); TOTAL CARBON DIOXIDE 24.7 MMOL/L (24-32); eCRCL 15 ML/MIN; eGFR 17 ML/MIN
[2025-04-30] MEDS: sodium bicarbonate (8.4%) inj. 150 MEQ in sodium chloride 0.45% 1,000 ML IV SCH (23:04)
[2025-05-01] VITALS (33 sets, daily range): BP systolic 136–182; BP diastolic 56–81; PULSE 77–120; RESP 0–20; O2SAT 89–98
[2025-05-01] MEDS: labetalol 20mg/4ml (5mg/ml) syringe IV PRN (00:58)
[2025-05-01] MEDS: piperacillin/tazo 3.375gm/50ml 50 ML IV SCH (00:58)
[2025-05-01] MEDS: hydrALAZINE 20mg/ml inj. IV ONE (02:04)
[2025-05-01 02:17] LABS: MEAN PLATELET VOLUME 8.1 FL (7.4-10.4); RED CELL DISTRIBUTION WIDTH 14.8 % (11.5-14.5)
[2025-05-01 02:35] LABS: CREATININE 3.49 MG/DL (0.60-1.10); PHOSPHORUS 6.5 MG/DL (2.3-4.5); TOTAL CARBON DIOXIDE 20.6 MMOL/L (24-32); eCRCL 15 ML/MIN; eGFR 17 ML/MIN
[2025-05-01] MEDS: HYDROmorphone inj. 0.5 MG/0.5 ML DISP.SYRIN IV PRN (03:54)
[2025-05-01 04:05] LABS: ABG BASE EXCESS -8.9 mmol/L (-2.0-3.0); ABG HCO3 18.4 mmol/L (21.0-28.0); ABG OXYGEN SATURATION 96.3 % (94.0-98.0); ABG PCO2 (T) 44.9 mmHg (35.0-48.0); ABG PH (T) 7.226 (7.350-7.450); ABG PO2 (T) 92.5 mmHg (83.0-108.0); FCOHb 0.6 % (0.5-1.5); FHHb 3.7 % (0.0-5.0); FIO2 32.0 mmHg/%; FMetHb 0.3 % (0.0-1.5); FO2Hb 95.4 % (94.0-98.0); PATIENT TEMPERATURE 36.1; TOTAL HEMOGLOBIN 9.4 G/dl (13.5-17.5)
--- NOTE | 2025-05-01 05:39 | CONSULTATION ---
DATE OF CONSULTATION: 04/30/2025 DICTATING PHYSICIAN: Brian White MD REASON FOR CONSULTATION: Pneumoperitoneum. HISTORY OF PRESENT ILLNESS: The patient is a 80-year-old male with multiple medical problems, who underwent a laparoscopic prostate resection on 04/20. He was brought to the ER with complaints of hematemesis and hematuria. He had a CAT scan on admission which revealed pneumoperitoneum. Surgical evaluation is now requested regarding possible etiologies. On further questioning, the patient denies any abdominal discomfort. Last BM was prior to prostate procedure. No history of peptic ulcer disease. He had a previous laparotomy for reasons which the patient cannot recall. PAST MEDICAL HISTORY: Notable for hypertension, BPH, and history of cerebrovascular disease. PAST SURGICAL HISTORY: Previous laparotomy as well as laparoscopic prostatic resection as outlined above. HOME MEDICATIONS: Prozac, Lopressor, hydrochlorothiazide, Norvasc, aspirin, hydrochlorothiazide, Lipitor, finasteride, and lisinopril. ALLERGIES: None. SOCIAL HISTORY: History of tobacco use. No alcohol use. REVIEW OF SYSTEMS: See H and P. PHYSICAL EXAMINATION: GENERAL: Well-nourished male, in no distress. VITAL SIGNS: Vital signs are unremarkable. HEART: Regular rate and rhythm. LUNGS: Clear to auscultation. ABDOMEN: There is mild distention. Well-healed prostate wound incisions. Minimal tenderness. No signs of peritonitis. EXTREMITIES: Unremarkable. No hernias noted. LABORATORY DATA: Labs include a WBC of 10, hematocrit of 26, and platelet count is 251. Chemistries include BUN and creatinine of 56 and 4.5, CO2 is 34, and BMP is 1371. IMAGING STUDIES: CAT scan of the abdomen reveals some scattered amount of free air, some dilated loops of small bowel and decompressed small bowel distally. There is a large amount of stool in the colon. There is some right lower lobe infiltrates. Stomach is somewhat distended. IMPRESSION: 1. Pneumoperitoneum, secondary to previous laparoscopic procedure, with no signs of peritonitis. 2. Small bowel obstruction versus ileus. 3. Constipation. 4. Acute kidney injury. 5. History of hypertension. 6. History of BPH. RECOMMENDATIONS: NPO, serial exams, and hydration. Repeat CAT scan in 1-2 days. Brian White MD TID: [id number] RECEIPT: [id number] KB/HAYDEE
--- NOTE | 2025-05-01 06:01 | RADIOLOGY REPORT ---
CHEST RADIOGRAPH Indication: r/o aspiration Technique: Single frontal view of the chest was obtained COMPARISON: DI CHEST,SINGLE VIEW on DOS: 04/30/25 FINDINGS: Lines and Tubes: Enteric catheter unchanged. Lungs: Progressive left perihilar and lower lung zone pulmonary airspace disease. Pleura: No effusion. No pneumothorax. Cardiomediastinal contours: Unremarkable Bones: Unremarkable IMPRESSION: 1. Progressive left perihilar and lower lung zone pulmonary airspace disease. 2. Enteric catheter.
[2025-05-01] MEDS: hydrALAZINE 20mg/ml inj. IV PRN (07:53)
--- NOTE | 2025-05-01 13:10 | PROGRESS NOTE ---
Progress Note ID Providers to CC ~ Progress Note Progress Note: awake/vss/abd-min distention/labs noted a/p 1. s/p small bowel resection-slow progress/cont supportive care WICHO SANDERS MD May 01, 2025 13:10
--- NOTE | 2025-05-01 17:56 | CONSULTATION REPORT - RESIDENT ---
Consult Providers to CC Resident Creating Document: RENAE ESPARZA JAMES VALENTINE History of Present Illness Reason for Admit\Complaint: Small-bowel obstruction History of Present Illness The patient is a 80-year-old male who underwent laparoscopic prostate resection surgery on 04/20/2025. Since the surgery, the patient did not have a bowel movement. Surgery was consulted and the patient underwent small-bowel resection on 04/30/2025. Construction Crew Member consulted for the management of other comorbidities. Patient also had pneumonia and he is requiring 5 L of oxygen through nasal cannula. He received antibiotics ceftriaxone and azithromycin. Currently receiving Zosyn. Patient also has KAYLEEN with a GFR of 17. However, the patient is making urine and Nephrology has been following the patient. Allergies: Coded Allergies: No Known Allergies (Unverified , 12/11/22) Home Medications Home Medications Active Reported Omeprazole 20 Mg Capsule.dr 1 Cap PO DAILY PRN 30 Days Trospium Chloride 20 Mg Tablet 1 Tab PO Q12H 30 Days Lopressor tablet (Metoprolol Tartrate) 25 Mg Tablet 1 Tab PO Q12H 30 Days Hold for SBP below 100mm Hg Hold for Heart Rate below 60. Hydrochlorothiazide 25 Mg Tab 1 Tab PO DAILY 30 Days Cefpodoxime Proxetil 100 Mg Tablet 200 Mg PO DAILY 7 Days Norvasc* (Amlodipine Besylate) 2.5 Mg Tablet 5 Mg PO DAILY 30 Days Baby Aspirin (Aspirin) 81 Mg Tab.chew 1 Tab PO DAILY Hydrochlorothiazide 25 Mg Tab 1 Tab PO DAILY Lipitor* (Atorvastatin Calcium) 20 Mg Tablet 1 Tablet PO HS Finasteride 5 Mg Tablet 1 Tab PO DAILY Oxycodone IR* (Oxycodone HCl) 5 Mg Tablet 1 Tab PO Q4H PRN Lisinopril* (Lisinopril) 40 Mg Tablet 1 Tab PO DAILY Past Medical History Past Medical History Hypertension BPH Shingles History of Stroke s/p stent placement Past Surgical History Surgical History Comment Abdominal surgery many years ago, patient unable to recall the reason for surgery Laparascopic prostate resection on Apr 20, 2025 Exam Vitals: Vital Signs Date Time Temp Pulse Resp B/P (MAP) Pulse Ox O2 Delivery O2 Flow Rate FiO2 05/01/25 17:30 11 05/01/25 16:52 112 05/01/25 16:50 95 Nasal Cannula* 5 40 05/01/25 16:00 165/78 (107) 05/01/25 05:00 97.3 General: General: Awake and Alert, no acute distress. HEENT: Conjunctiva pink, Sclera clear, Mucus Membranes moist. Neck: Supple without masses and tenderness. Resp: Unlabored. Lungs clear to auscultation bilaterally. Heart: Regular Rate and rhythm, normal S1 and S2 without murmur, rub or gallop. Abdomen: Tender, covered with surgical dressing, hypoactive bowel sounds present Extremities: No cyanosis,clubbing or edema. Skin: Warm and Dry. Diagnostic Data Last Recorded Lab Results: 05/01/25 0200 05/01/25 0200 Diagnostic Data: Laboratory Tests Test 04/27/25 16:34 Prothrombin Time 10.7 SECONDS (9.0-12.0) INR International Normalized Ratio 1.0 INR Activated Partial Thromboplast Time 27 SECONDS (22-32) Coagulation Comments Additional Plan Gastroenterology: Small-bowel obstruction S/p small-bowel resection, 04/30/2025 The patient is being managed by Dr. White. He has an NG tube, currently clamped. Monitoring residuals. The patient is on Zosyn and azithromycin. NPO. Wound care. Respiratory system: Acute hypoxemic respiratory failure Community-acquired pneumonia Patient is currently on 5 L of oxygen through nasal cannula. On steroids 40 mg b.i.d. Continue Zosyn and azithromycin. Breathing treatments PRN. RT evaluate and treat. Cardiovascular system: Hypertension Started the patient on nicardipine drip. Continue monitoring blood pressures. Hold home blood pressure medications as the patient is NPO. Nephrology: Acute kidney injury likely prerenal Continue fluids - bicarb drip at 100 mL/hour. Monitor BMP. Bicarb 18.4. Reassess tomorrow and discontinue if required and switch him to IV fluids. Nutrition: NPO. Code Status: Full code DVT Prophylaxis: SCDs Analgesia/Sedation: Dilaudid Lines/Tubes: PIV, NG tube GI Prophylaxis: Protonix Nutrition: NPO PT: Ordered Prognosis: Guarded Disposition: Continue care in ICU. Renae Esparza MD Internal Medicine Resident PGY-2 The patient was seen, examined and discussed with the attending physician, Dr. Che. Date of Service: May 01, 2025 Billing Provider: TONY CHE MD,RENAE VALENTINE, RES May 01, 2025 17:56
--- NOTE | 2025-05-01 18:14 | PROGRESS NOTE- Residence ---
Progress Note - Resident Providers to CC Resident Creating Document: KENJI NELSON RES ~ Antibiotic Timeout Antibiotic Ordered?: Yes Subjective Patient seen and examined at the bedside today. The patient has been transferred to [facility] for further care and monitoring after he underwent exploratory laparotomy with a small-bowel resection yesterday by Dr. White. The patient tolerated the procedure well. He was complaining of some abdominal pain and tenderness. No other concerns complaints were reported. Objective Vital Signs Date Time Temp Pulse Resp B/P (MAP) Pulse Ox O2 Delivery O2 Flow Rate FiO2 05/01/25 17:30 11 05/01/25 17:00 109 182/74 (110) 98 Nasal Cannula 4.0 05/01/25 16:50 40 05/01/25 05:00 97.3 Result Diagram: 05/01/25 0200 05/01/25 0200 General: Awake, alert, not in acute distress. Thin elderly male. HEENT: Atraumatic, normocephalic, EOMI, anicteric sclera ; pink conjunctiva, dry mucous membranes Neck: Trachea midline. Supple, full range of motion, no JVD Cardiac: Regular rhythm, regular rate with no murmurs all over the precordium. Respiratory: Equal breath sounds bilaterally, no tachypnea, no wheezing ,rub or rales, Chest wall is symmetric and without deformity. Gastrointestinal: Surgical dressing present in the center of the abdomen. The dressing is dry. Abdomen tender on palpation diffusely. No guarding or rigidity. Musculoskeletal: No pedal edema, no cyanosis Neurological: Speech is clear, alert, and oriented x 4. No motor or sensory deficit, deep tendon reflexes normal, cerebellar intact. Cranial nerves II-XII intact. Skin: Warm and dry Coagulation Studies Laboratory Tests Test 04/27/25 16:34 Prothrombin Time 10.7 SECONDS (9.0-12.0) INR International Normalized Ratio 1.0 INR Activated Partial Thromboplast Time 27 SECONDS (22-32) Coagulation Comments Assessment Assessment 80-year-old male with history of hypertension, BPH, laparoscopic prostate resection on April 20, 2025 admitted for management of SBO. Plan Plan Small-bowel obstruction Status post exploratory laparotomy and small-bowel resection POD #1 Surgeon-Dr. White. The patient tolerated the procedure well and no complications. Currently transferred to the ICU for further care and monitoring. Continue supportive care with the pain management and IV fluids for hydration and maintenance. The patient is started on IV Zosyn. Follow up with the for peritoneal fluid culture. The patient currently has NG tube in place. We will continue management as per the surgeon. Hematemesis, resolved Normocytic normochromic anemia EGD Dr. Hickman showed LA grade B esophagitis with no active bleeding at the distal esophagus with 1 or more mucosal breaks greater than 5 mm, not extending between the tops of 2 mucosal folds, congested and erythematous mucosa in the gastric body and antrum which was biopsied and no blood was seen in the stomach Patient is not on anticoagulants, he is on aspirin 81 mg 2/2 history of stroke, held aspirin H/H has been stable. 9.5 and 29.0 today. Continue IV Protonix 40 b.i.d.. We will continue close monitoring patient's H&H. PRBC transfusion if the hemoglobin falls below seven Hematuria, resolved UTI due to indwelling brody's catheter BPH s/p laparoscopic prostate resection on Apr 20, [address] [facility] Patient denies history of prostate cancer He has brody's in place which has clear urine CT (04/27/25) showed bladder wall thickening with surrounding stranding which may represent sequela of cystitis, and free air within the pelvis which is secondary to recent surgery Urinalysis showed large occult blood with UTI. Urine culture-no growth. Blood culture-no growth. The patient received four days of IV ceftriaxone. He has been switched to IV Zosyn today. Patient uses finasteride 5 mg and Trospium 20 mg BID for spasms, will continue after patient tolerates oral feeding Monitor for bleeding , consider continuous bladder irrigation in the event of hematuria Acute respiratory failure 2/2 Community acquired pneumonia covering gram negative and gram positive bacteria Possible aspiration pneumonia Bronchiectasis Currently on 5 L oxygen via nasal cannula. He is an active smoker- 1 pack/day for the past [address] (04/27/25) showed right lower lobe pulmonary consolidation, tree-in-bud nodularity, and bronchiectatic changes with differential considerations including atypical infectious processes, aspiration. He received four days of IV ceftriaxone and will received three days of azithromycin. Antibiotics has been changed to IV Zosyn post small-bowel resection. Continue IV methylprednisolone 40 mg b.i.d. Duonebs and incentive spirometry. KAYLEEN, most likely multifactorial etiology prerenal ( due to GI loss and bleeding ), intrinsic 2/2 acute tubular necrosis, post renal (urinary retention/obstruction) Non-anion gap Metabolic acidosis The on-call superintendent drilling Dr. Thacker has been consulted. Appreciate recommendations. The patient's renal function is improving slowly. Creatinine down trending 2.4 nine today. BUN is 67 BUN/Cr is 19.2, FENA 1.7%, urine sodium 52. Renal ultrasound shows no hydronephrosis Continue fluids. Currently on NS at 120 mL/hour. Patient is also on bicarb drip as per the surgeon. Strict I's and os. Avoid nephrotoxic agents. Continue to monitor the patient's electrolytes and renal function test closely. Continue management as per Nephrology recommendations. Moderate Hyperphosphatemia Pseudo hypocalcemia The patient's phosphorus continues to be high-6.5. Sevelamer 800 mg t.i.d. once patient tolerates oral feeds Calcium is 7.5, corrected calcium is 8.9 which is normal Nephrology on board. Appreciate recommendations. Hypermagnesemia One receive improving. Continue to monitor magnesium. History of shingles Patient uses oxycodone at home Continue supportive care with p.r.n. pain management. Hypertension Patient is currently NPO. Has a off home p.o. hydrochlorothiazide 25 mg, lisinopril 40 mg, amlodipine 5 mg and metoprolol 25 mg. Started the patient on as needed IV hydralazine 10 mg p.r.n. q.6 hours for high blood pressures. Continue monitoring the vitals closely. History of stoke Patient uses aspirin 81 mg, atorvastatin 20 mg at home Held aspirin Goal LDL < 55 LDL 44, We will continue atorvastatin 20 mg after patient tolerates oral diet Severe malnutrition BMI-19.1 Kg/m2 Code status: Full code DVT prophylaxis : SCD GI prophylaxis: IV pantoprazole 40 mg b.i.d. Nutrition: NPO. NG tube in place. Advance diet as recommended by the surgeon. Physical therapy: ordered Disposition: The patient underwent exploratory laparotomy and small-bowel obstruction yesterday and has been transferred to the CICU for further care and monitoring. Kenji Nelson MD Internal Medicine Resident, PGY-3 Date of Service: May 01, 2025 Billing Provider: CECY SHARMA MD, SURYA PRATIK, RES May 01, 2025 18:14
--- NOTE | 2025-05-01 22:39 | PROGRESS NOTE ---
Progress Note Dictate Providers to CC ~ Progress Note: This is a 80-year-old man with a history of BPH, hypertension, prior stroke on aspirin, and recent laparoscopic prostate resection who presents with acute kidney injury (KAYLEEN), persistent hematuria, hematemesis, and urinary retention. He has ongoing GI bleeding, is unable to void, and has not had a bowel movement since surgery. His labs show significant azotemia, hyperphosphatemia, hypocalcemia, hypoalbuminemia, and a high anion gap metabolic acidosis. Imaging reveals moderate pneumoperitoneum, colonic and small bowel distention, and lower lobe pulmonary consolidation. He is currently NPO with an NG tube, on broad- spectrum antibiotics, steroids, and supportive care. The etiology of his KAYLEEN is likely multifactorial, including pre-renal (volume depletion from GI losses and bleeding), post-renal (urinary retention/obstruction), and possible intrinsic factors (sepsis, nephrotoxic medications). His electrolyte abnormalities and metabolic derangements are consistent with advanced KAYLEEN and possible early uremia. He is at high risk for further complications given his age, comorbidities, and ongoing critical illness. Antibiotic Ordered?: N/A Subjective Subjective He reports doing better today after surgery, no specific complaints other than some mild abdominal tenderness Objective Vitals Vital Signs Date Time Temp Pulse Resp B/P (MAP) Pulse Ox O2 Delivery O2 Flow Rate FiO2 05/01/25 19:52 19 05/01/25 19:12 114 96 Nasal Cannula* 5 40 05/01/25 18:00 143/64 (90) 05/01/25 05:00 97.3 Alert, appears comfortable Regular rate and rhythm no murmur Clear to auscultation bilaterally Decreased bowel sounds, wound clean and dry Trace edema Lab Results: 05/01/25 0200 05/01/25 0200 Coagulation Studies Laboratory Tests Test 04/27/25 16:34 Prothrombin Time 10.7 SECONDS (9.0-12.0) INR International Normalized Ratio 1.0 INR Activated Partial Thromboplast Time 27 SECONDS (22-32) Coagulation Comments Other Results I & O 05/01/25 07:00 Intake Total 673.5 ml Output Total 4205 ml Balance -3531.5 ml IV Total 573.5 ml Other 100 ml Output Urine Total 1505 ml Gastric Drainage Total 2000 ml Emesis 300 ml Drainage Total 400 ml Problem\Assessment\Plan Problems/Diagnosis: (1) Hematuria Assessment & Plan: Hematuria and Urinary Retention post-prostate resection Maintain Andujar catheter with continuous bladder irrigation if clots are present or hematuria persists. Monitor for signs of catheter blockage or bladder distention. Urology to evaluate for ongoing bleeding or possible surgical complications. Hold anticoagulation/antiplatelet therapy if possible, balancing stroke risk and bleeding risk. Monitor hemoglobin and hematocrit daily; transfuse if indicated for symptomatic anemia or hemodynamic instability. (2) Disorders of fluid, electrolyte, and acid-base balance Assessment & Plan: Electrolyte and Acid-Base Disturbances (hyperphosphatemia, hypocalcemia, high anion gap metabolic acidosis) Continue sevelamer for phosphate binding. Replete calcium as needed, considering corrected calcium for hypoalbuminemia. Monitor for symptoms of hypocalcemia (tetany, arrhythmias). Monitor acid-base status; consider bicarbonate therapy if severe acidosis and not volume overloaded. Monitor for hyperkalemia; treat if potassium rises further or if ECG changes develop. Volume Status and Fluid Management Assess volume status clinically and with labs; avoid both overload and dehydration. Adjust IV fluids as needed based on ongoing losses, urine output, and volume status. Monitor for signs of pulmonary edema, especially given underlying pneumonia and hypoxia. (3) Constipation Assessment & Plan: Constipation and Bowel Obstruction, improved after surgery (4) Pulmonary consolidation determined by examination Assessment & Plan: Pulmonary consolidation (possible aspiration or atypical pneumonia) Continue current antibiotics (ceftriaxone, azithromycin) and steroids as indicated. Supportive respiratory care with oxygen, incentive spirometry, and bronchodilators. Monitor for respiratory decompensation; consider ICU transfer if worsening. (5) Acute kidney injury Assessment & Plan: Acute Kidney Injury (KAYLEEN), multifactorial (pre-renal, post- renal, possible intrinsic) Improved considerably after surgery Hold all nephrotoxic medications (NSAIDs, SARY inhibitors, ARBs, diuretics if possible). Continue to monitor urine output closely; maintain accurate I/O records. Assess for and relieve any ongoing urinary obstruction; ensure Andujar catheter is patent and functioning. Monitor daily renal function, electrolytes, and acid-base status. Adjust all medication dosing for current renal function. Consider early nephrology consultation for possible renal replacement therapy if there is worsening acidosis, hyperkalemia, volume overload, or uremic symptoms. Maintain euvolemia; avoid both volume overload and hypovolemia. Continue sevelamer for hyperphosphatemia; monitor calcium and phosphorus daily. Monitor for signs of uremia (encephalopathy, pericarditis, bleeding). MELLO JACKSON III DO May 01, 2025 22:39
[2025-05-02] VITALS (13 sets, daily range): BP systolic 119–164; BP diastolic 60–82; PULSE 90–123; RESP 9–24; TEMP 98.7–99; O2SAT 90–99
[2025-05-02] MEDS: HYDROcodone/acetaminophen 5mg/325mg tablet PO PRN (03:03)
--- NOTE | 2025-05-02 06:14 | PROGRESS NOTE ---
Progress Note Dictate Providers to CC ~ Progress Note: BP better controlled. Central Line/PICC still needed: N\A Andujar Indications Met/Not Met: F/C Indications Met Antibiotic Ordered?: Yes Subjective Subjective Confuse Objective Vitals Vital Signs Date Time Temp Pulse Resp B/P (MAP) Pulse Ox O2 Delivery O2 Flow Rate FiO2 05/02/25 06:08 118 15 153/70 (97) 97 Nasal Cannula 6.0 05/02/25 04:00 98.2 05/01/25 19:12 40 Lab Results: 05/01/25 0200 05/01/25 0200 Objective Heart: S1-2 reg Lungs: Coarse BS at bases Abd: Soft, BS (+) Ext: No edema Neuro: confuse Coagulation Studies Laboratory Tests Test 04/27/25 16:34 Prothrombin Time 10.7 SECONDS (9.0-12.0) INR International Normalized Ratio 1.0 INR Activated Partial Thromboplast Time 27 SECONDS (22-32) Coagulation Comments Problem\Assessment\Plan Additional Plan 1-S/P SB resection -Pain control -Abx as per Surgery 2-HTN -Continue anti-htn 3-KAYLEEN -Nephrology on case A Yane CC time 35min Sepsis Screening Reassessment Date: May 02, 2025 TONY HAYNES MD May 02, 2025 06:14
[2025-05-02 08:10] LABS: MEAN PLATELET VOLUME 8.8 FL (7.4-10.4); RED CELL DISTRIBUTION WIDTH 15.2 % (11.5-14.5)
[2025-05-02 08:21] LABS: CREATININE 3.48 MG/DL (0.60-1.10); TOTAL CARBON DIOXIDE 24.6 MMOL/L (24-32); eCRCL 16 ML/MIN; eGFR 17 ML/MIN
[2025-05-02] MEDS: ringers solution, lacted 1,000 ML IV SCH (09:15)
--- NOTE | 2025-05-02 10:31 | PROGRESS NOTE- Residence ---
Progress Note - Resident Providers to CC Resident Creating Document: NABILA GARCIA RES ~ Antibiotic Timeout Antibiotic Ordered?: Yes Subjective Patient was seen and examined bedside. He reports abdominal pain, which is mildly improving. He states that he passed flatus yesterday but has not passed gas yet today. Patient pulled out NG tube last night. Faint bowel sounds are heard. He denies nausea, vomiting, shortness of breath, fever, chills. There is no blood in Brody's bag. Objective Vital Signs Date Time Temp Pulse Resp B/P (MAP) Pulse Ox O2 Delivery O2 Flow Rate FiO2 05/02/25 08:13 115 05/02/25 07:59 98.1 11 93 Nasal Cannula 3.0 05/02/25 07:34 28 Result Diagram: 05/02/25 0755 05/02/25 0755 Awake, alert, and oriented x4, resting comfortably in bed, in no acute distress, Brody's tube present HEENT: Atraumatic, normocephalic, EOMI, anicteric sclera ; pink conjunctiva, dry mucous membranes Neck: Trachea midline. Supple, full range of motion, no JVD Cardiac: Regular rhythm, regular rate with no murmurs all over the precordium. Respiratory: Equal breath sounds bilaterally, no tachypnea, no wheezing ,rub or rales, Chest wall is symmetric and without deformity. Gastrointestinal: Surgical dressing present over abdomen with no soakage, or drainage, surrounding skin is normal, Abdomen soft, diffuse tenderness present in abdomen, faint bowel sounds heard, no hepatosplenomegaly Musculoskeletal: No pedal edema, no cyanosis Neurological: Speech is clear, alert, and oriented x 4. No motor or sensory deficit, deep tendon reflexes normal, cerebellar intact. Cranial nerves II-XII intact. Skin: Warm and dry Coagulation Studies Laboratory Tests Test 04/27/25 16:34 Prothrombin Time 10.7 SECONDS (9.0-12.0) INR International Normalized Ratio 1.0 INR Activated Partial Thromboplast Time 27 SECONDS (22-32) Coagulation Comments Assessment Assessment 80-year-old male with history of hypertension, BPH, laparoscopic prostate resection on April 20, 2025 admitted for management of SBO. Plan Plan Small-bowel obstruction s/p exploratory laparotomy and small-bowel resection, post op day- 2 Patient underwent small bowel resection by Dr. White Patient states that he passed flatus yesterday, but not yet today Faint bowel sounds heard Patient is tachycardic WBC elevated to 13.1, follow up procalcitonin and lactic acid Continue IV Zosyn- day 2 Continue pain management Started LR at 100 mL/hour, as sodium and chloride are high Patient is on NPO, patient pulled out the NG tube last night Follow up peritoneal fluid culture Continue management as per the surgeon, Dr. White Hematemesis, resolved Normocytic normochromic anemia EGD Dr. Hickman showed LA grade B esophagitis with no active bleeding at the distal esophagus with 1 or more mucosal breaks greater than 5 mm, not extending between the tops of 2 mucosal folds, congested and erythematous mucosa in the gastric body and antrum which was biopsied and no blood was seen in the stomach Patient is not on anticoagulants, he is on aspirin 81 mg 2/2 history of stroke, held aspirin H/H has been stable- 8.9/26.8 Continue IV Protonix 40 b.i.d. Monitor H&H PRBC transfusion if Hb < 7 Hematuria, resolved UTI due to indwelling brody's catheter BPH s/p laparoscopic prostate resection on Apr 20, 2025 at [facility] Patient denies history of prostate cancer He has brody's in place which has clear urine CT (04/27/25) showed bladder wall thickening with surrounding stranding which may represent sequela of cystitis, and free air within the pelvis which is secondary to recent surgery Urinalysis showed large occult blood with UTI. Urine culture-no growth. Blood culture-no growth. The patient received four days of IV ceftriaxone Continue IV Zosyn- day 2 Patient uses finasteride 5 mg and Trospium 20 mg BID for spasms, will continue after patient tolerates oral feeding Monitor for bleeding , consider continuous bladder irrigation in the event of hematuria Acute respiratory failure 2/2 Community acquired pneumonia covering gram negative and gram positive bacteria Possible aspiration pneumonia Bronchiectasis Patient is saturating well on 3 L O2 NC He is an active smoker- 1 pack/day for the past [address] (04/27/25) showed right lower lobe pulmonary consolidation, tree-in-bud nodularity, and bronchiectatic changes with differential considerations including atypical infectious processes, aspiration. He received four days of IV ceftriaxone and three days of azithromycin, discontinued them Continue IV Zosyn - day 2, s/p small-bowel resection. Continue IV methylprednisolone 40 mg b.i.d. Duonebs and incentive spirometry. KAYLEEN, most likely multifactorial etiology prerenal ( due to GI loss and bleeding ), intrinsic 2/2 acute tubular necrosis, post renal (urinary retention/obstruction) Non-anion gap Metabolic acidosis, resolved Renal function is improving slowly. Creatinine downtrended to 3.48 BUN is 75 BUN/Cr elevated to 21.6, FENA 1.7%, urine sodium 52. Renal ultrasound showed no hydronephrosis Discontinued NS at 20 mL/hour, started LR at 100 mL/hour as sodium and chlorine are high Bicarbonate is normal, bicarb drip discontinued Negative fluid balance of 436 mL, continue strict Is&Os Avoid nephrotoxic agents. Monitor creatinine and electrolytes Agricultural Equipment MechanicDr. Marquez is following up on the patient Moderate Hyperphosphatemia Pseudohypocalcemia Phosphorus was elevated 6.5 Sevelamer 800 mg t.i.d. once patient tolerates oral feeds Calcium is 7.5, corrected calcium is 8.9 which is normal Agricultural Equipment Mechanic, Dr. Marquez is following up on the patient Hypermagnesemia, resolved Magnesium is normal History of shingles Patient uses oxycodone at home Continue supportive care with p.r.n. pain management. Hypertension Blood pressure is on the higher side Patient uses hydrochlorothiazide 25 mg, lisinopril 40 mg, amlodipine 5 mg and metoprolol tartrate 25 mg b.i.d. at home Patient received metoprolol tartrate 25 mg and amlodipine 5 mg today in the a.m. IV hydralazine 10 mg p.r.n. q.6 hours for high blood pressures if systolic BP > 180 Continue monitoring the vitals closely History of stoke Patient uses aspirin 81 mg, atorvastatin 20 mg at home Held aspirin, in view of hematuria present on admission Goal LDL < 55 LDL 44, We will continue atorvastatin 20 mg after patient tolerates oral diet Severe malnutrition BMI-19.1 Kg/m2 Code status: Full code DVT prophylaxis: SCD GI prophylaxis: IV pantoprazole 40 mg b.i.d. Pain management: Tylenol/[place] 5 mg/10 mg p.r.n. Diet/nutrition: NPO Prognosis: Guarded Disposition: Postop day 2 s/p small-bowel resection, Continue management as per surgeon, Dr. White and ICU team, PT eval and DC plan Resident MD attestation: The patient note has been reviewed and supervised by senior residents PGY-2/ PGY-3. Patient was seen, examined and discussed with attending physician, Dr. Aline Garcia MD Internal Medicine resident, PGY-1 Date of Service: May 02, 2025 Billing Provider: CECY SHARMA MD, PREETHI, RES May 02, 2025 10:31
[2025-05-02 10:46] LABS: PHOSPHORUS 6.1 MG/DL (2.3-4.5)
--- NOTE | 2025-05-02 12:29 | PROGRESS NOTE ---
Progress Note Dictate Providers to CC CC: ANGELO ZAPATA MD ~ Progress Note: Subsequent surgical care on a 80-year-old gentleman who is postoperative day 2. Status post exploratory laparotomy with a small-bowel resection where he was found to have an obstruction with inspissated stool requiring small bowel resection Covering for Dr. Brian White over the weekend Patient inadvertently pulled his nasogastric tube out last night No nausea States he is passing a small amount of flatus Incision is clean, dry, and intact Safe for transfer from a surgical standpoint Clear liquid diet as tolerated Surgery will continue to follow Antibiotic Ordered?: Yes Objective Vitals Vital Signs Date Time Temp Pulse Resp B/P (MAP) Pulse Ox O2 Delivery O2 Flow Rate FiO2 05/02/25 08:13 115 05/02/25 07:59 98.1 11 93 Nasal Cannula 3.0 05/02/25 07:34 28 Lab Results: 05/02/25 0755 05/02/25 0755 Coagulation Studies Laboratory Tests Test 04/27/25 16:34 Prothrombin Time 10.7 SECONDS (9.0-12.0) INR International Normalized Ratio 1.0 INR Activated Partial Thromboplast Time 27 SECONDS (22-32) Coagulation Comments ANGELO ZAPATA MD May 02, 2025 12:29
[2025-05-02 15:20] LABS: ABG BASE EXCESS -2.2 mmol/L (-2.0-3.0); ABG HCO3 22.9 mmol/L (21.0-28.0); ABG OXYGEN SATURATION 90.6 % (94.0-98.0); ABG PCO2 (T) 40.2 mmHg (35.0-48.0); ABG PH (T) 7.373 (7.350-7.450); ABG PO2 (T) 61.4 mmHg (83.0-108.0); ALLEN'S TEST POSITIVE; FCOHb 0.7 % (0.5-1.5); FHHb 9.3 % (0.0-5.0); FIO2 24.0 mmHg/%; FMetHb 0.3 % (0.0-1.5); FO2Hb 89.7 % (94.0-98.0); PATIENT TEMPERATURE 37.0; TOTAL HEMOGLOBIN 8.8 G/dl (13.5-17.5)
[2025-05-02] MEDS: ENSURE CLEAR - 237ml PO SCH (18:00)
--- NOTE | 2025-05-02 18:57 | PROGRESS NOTE ---
Progress Note Dictate Providers to CC ~ Progress Note: This is a 80-year-old man with a history of BPH, hypertension, prior stroke on aspirin, and recent laparoscopic prostate resection who presents with acute kidney injury (KAYLEEN), persistent hematuria, hematemesis, and urinary retention. He has ongoing GI bleeding, is unable to void, and has not had a bowel movement since surgery. His labs show significant azotemia, hyperphosphatemia, hypocalcemia, hypoalbuminemia, and a high anion gap metabolic acidosis. Imaging reveals moderate pneumoperitoneum, colonic and small bowel distention, and lower lobe pulmonary consolidation. He is currently NPO with an NG tube, on broad- spectrum antibiotics, steroids, and supportive care. The etiology of his KAYLEEN is likely multifactorial, including pre-renal (volume depletion from GI losses and bleeding), post-renal (urinary retention/obstruction), and possible intrinsic factors (sepsis, nephrotoxic medications). His electrolyte abnormalities and metabolic derangements are consistent with advanced KAYLEEN and possible early uremia. He is at high risk for further complications given his age, comorbidities, and ongoing critical illness. Antibiotic Ordered?: N/A Subjective Subjective Improved today, much more alert Objective Vitals Vital Signs Date Time Temp Pulse Resp B/P (MAP) Pulse Ox O2 Delivery O2 Flow Rate FiO2 05/02/25 16:10 89 05/02/25 15:00 98.7 24 119/69 (86) 95 Nasal Cannula 1.0 28 Alert RRR w/o murmur CTAB Decreased BS, dressing clean and dry No edema Lab Results: 05/02/25 0755 05/02/25 0755 Coagulation Studies Laboratory Tests Test 04/27/25 16:34 Prothrombin Time 10.7 SECONDS (9.0-12.0) INR International Normalized Ratio 1.0 INR Activated Partial Thromboplast Time 27 SECONDS (22-32) Coagulation Comments Problem\Assessment\Plan Problems/Diagnosis: (1) Hematuria Assessment & Plan: Hematuria and Urinary Retention post-prostate resection Resolved Maintain Andujar catheter with continuous bladder irrigation if clots are present or hematuria persists. Monitor for signs of catheter blockage or bladder distention. Urology to evaluate for ongoing bleeding or possible surgical complications. Hold anticoagulation/antiplatelet therapy if possible, balancing stroke risk and bleeding risk. Monitor hemoglobin and hematocrit daily; transfuse if indicated for symptomatic anemia or hemodynamic instability. (2) Disorders of fluid, electrolyte, and acid-base balance Assessment & Plan: Electrolyte and Acid-Base Disturbances (hyperphosphatemia, hypocalcemia, high anion gap metabolic acidosis) Continue sevelamer for phosphate binding. Hyponatremia sodium 148, increase free water, and discontinue lactated ringers. Replete calcium as needed, considering corrected calcium for hypoalbuminemia. Monitor for symptoms of hypocalcemia (tetany, arrhythmias). Monitor acid-base status; consider bicarbonate therapy if severe acidosis and not volume overloaded. Monitor for hyperkalemia; treat if potassium rises further or if ECG changes develop. Volume Status and Fluid Management Assess volume status clinically and with labs; avoid both overload and dehydration. Adjust IV fluids as needed based on ongoing losses, urine output, and volume status. Monitor for signs of pulmonary edema, especially given underlying pneumonia and hypoxia. (3) Constipation Assessment & Plan: Constipation and Bowel Obstruction, improved after surgery (4) Pulmonary consolidation determined by examination Assessment & Plan: Pulmonary consolidation (possible aspiration or atypical pneumonia) improved Continue current antibiotics (ceftriaxone, azithromycin) and steroids as indicated. Supportive respiratory care with oxygen, incentive spirometry, and bronchodilators. Monitor for respiratory decompensation; consider ICU transfer if worsening. (5) Acute kidney injury Assessment & Plan: Acute Kidney Injury (KAYLEEN), multifactorial (pre-renal, post- renal, possible intrinsic) Improved considerably after surgery Hold all nephrotoxic medications (NSAIDs, SARY inhibitors, ARBs, diuretics if possible). Continue to monitor urine output closely; maintain accurate I/O records. Assess for and relieve any ongoing urinary obstruction; ensure Andujar catheter is patent and functioning. Monitor daily renal function, electrolytes, and acid-base status. Adjust all medication dosing for current renal function. Consider early nephrology consultation for possible renal replacement therapy if there is worsening acidosis, hyperkalemia, volume overload, or uremic symptoms. Maintain euvolemia; avoid both volume overload and hypovolemia. Continue sevelamer for hyperphosphatemia; monitor calcium and phosphorus daily. Monitor for signs of uremia (encephalopathy, pericarditis, bleeding). MELLO JACKSON III DO May 02, 2025 18:57
[2025-05-03] VITALS (10 sets, daily range): BP systolic 119–158; BP diastolic 57–88; PULSE 69–102; RESP 10–20; TEMP 97.4–98.3; O2SAT 90–95
[2025-05-03 06:42] LABS: MEAN PLATELET VOLUME 8.1 FL (7.4-10.4); RED CELL DISTRIBUTION WIDTH 15.0 % (11.5-14.5)
[2025-05-03 07:31] LABS: CREATININE 3.74 MG/DL (0.60-1.10); TOTAL CARBON DIOXIDE 26.8 MMOL/L (24-32)
[2025-05-03 07:32] LABS: eCRCL 14 ML/MIN; eGFR 16 ML/MIN
--- NOTE | 2025-05-03 08:24 | PROGRESS NOTE ---
Progress Note Dictate Providers to CC CC: ANGELO ZAPATA MD ~ Progress Note: Subsequent surgical care on a 80-year-old gentleman who is postoperative day 3. Status post exploratory laparotomy with a small-bowel resection where he was found to have an obstruction with inspissated stool requiring small bowel resection Covering for Dr. Brian White over the weekend Tolerating clears but no significant flatus at this point 1 g drop in hemoglobin-will trend Hemodynamically normal Incision is clean, dry, and intact Continue clears until increased appetite and passing significant flatus/return of bowel function Surgery will continue to follow Antibiotic Ordered?: Yes Objective Vitals Vital Signs Date Time Temp Pulse Resp B/P (MAP) Pulse Ox O2 Delivery O2 Flow Rate FiO2 05/03/25 07:00 98.1 102 10 154/62 (92) 94 Nasal Cannula 2.0 05/03/25 03:00 28 Lab Results: 05/03/25 0618 05/03/25 0618 Coagulation Studies Laboratory Tests Test 04/27/25 16:34 Prothrombin Time 10.7 SECONDS (9.0-12.0) INR International Normalized Ratio 1.0 INR Activated Partial Thromboplast Time 27 SECONDS (22-32) Coagulation Comments ANGELO ZAPATA MD May 03, 2025 08:24
--- NOTE | 2025-05-03 12:29 | PROGRESS NOTE- Residence ---
Progress Note - Resident Providers to CC Resident Creating Document: NABILA GARCIA RES ~ Antibiotic Timeout Antibiotic Ordered?: Yes Subjective Patient was seen and examined bedside. He endorses abdominal pain over the surgical area with a severity of 9/10. He did not pass flatus yesterday or today. Faint bowel sounds are heard. He is tolerating clear liquids. He denies nausea, vomiting, chills, shortness of breath but he is cold and asks for more than blankets. There is no blood in the Brody's bag. Objective Vital Signs Date Time Temp Pulse Resp B/P (MAP) Pulse Ox O2 Delivery O2 Flow Rate FiO2 05/03/25 11:31 16 05/03/25 09:18 73 05/03/25 07:00 98.1 154/62 (92) 94 Nasal Cannula 2.0 05/03/25 03:00 28 Result Diagram: 05/03/25 0618 05/03/25 0618 Awake, alert, and oriented x4, in mild distress, Brody's tube present HEENT: Atraumatic, normocephalic, EOMI, anicteric sclera ; pink conjunctiva, dry mucous membranes Neck: Trachea midline. Supple, full range of motion, no JVD Cardiac: Regular rhythm, regular rate with no murmurs all over the precordium. Respiratory: Equal breath sounds bilaterally, no tachypnea, no wheezing ,rub or rales, Chest wall is symmetric and without deformity. Gastrointestinal: Incision over midline of abdomen is clean, without discharge and surrounding skin is normal. Abdomen soft, diffuse tenderness present in abdomen, faint bowel sounds heard, no hepatosplenomegaly Musculoskeletal: No pedal edema, no cyanosis Neurological: Speech is clear, alert, and oriented x 4. No motor or sensory deficit, deep tendon reflexes normal, cerebellar intact. Cranial nerves II-XII intact. Skin: Warm and dry Coagulation Studies Laboratory Tests Test 04/27/25 16:34 Prothrombin Time 10.7 SECONDS (9.0-12.0) INR International Normalized Ratio 1.0 INR Activated Partial Thromboplast Time 27 SECONDS (22-32) Coagulation Comments Assessment Assessment 80-year-old male with history of hypertension, BPH, laparoscopic prostate resection on April 20, 2025 admitted for management of SBO s/p exploratory laparotomy with small-bowel resection. Plan Plan Small-bowel obstruction s/p exploratory laparotomy and small-bowel resection, post op day- 3 Patient underwent small bowel resection by Dr. White He is tolerating clear liquids Patient states that he did not pass flatus Faint bowel sounds heard WBC has downtrended to 12.8 Procalcitonin was elevated yesterday-5.59 Follow up procalcitonin tomorrow Lactic acid was normal Continue IV Zosyn- day 3 Continue pain management Encourage patient to walk with PT Discontinued LR, on D5 at 50 mL/hour Follow up peritoneal fluid culture Continue management as per the surgery, Dr. Orona is covering for Dr. White over the weekend, follow his recommendations Hematemesis, resolved Normocytic normochromic anemia EGD Dr. Hickman showed LA grade B esophagitis with no active bleeding at the distal esophagus with 1 or more mucosal breaks greater than 5 mm, not extending between the tops of 2 mucosal folds, congested and erythematous mucosa in the gastric body and antrum which was biopsied and no blood was seen in the stomach Patient is not on anticoagulants, he is on aspirin 81 mg 2/2 history of stroke, held aspirin H/H has been stable- 7.7/23.1 Continue IV Protonix 20 b.i.d. Monitor H&H q.12h PRBC transfusion if Hb < 7 Hematuria, resolved UTI due to indwelling brody's catheter BPH s/p laparoscopic prostate resection on Apr 20, 2025 at [facility] Patient denies history of prostate cancer He has brody's in place which has clear urine CT (04/27/25) showed bladder wall thickening with surrounding stranding which may represent sequela of cystitis, and free air within the pelvis which is secondary to recent surgery Urinalysis showed large occult blood with UTI. Urine culture-no growth. Blood culture-no growth. The patient received four days of IV ceftriaxone Continue IV Zosyn- day 3 Continue home medication finasteride 5 mg and Trospium 20 mg BID for spasms Monitor for bleeding , consider continuous bladder irrigation in the event of hematuria Acute respiratory failure 2/2 Community acquired pneumonia covering gram negative and gram positive bacteria, improving Possible aspiration pneumonia Bronchiectasis Patient is saturating well on 2 L O2 NC He is an active smoker- 1 pack/day for the past [address] (12/01/25) showed right lower lobe pulmonary consolidation, tree-in-bud nodularity, and bronchiectatic changes with differential considerations including atypical infectious processes, aspiration. He received four days of IV ceftriaxone and three days of azithromycin, discontinued them Continue IV Zosyn - day 3, s/p small-bowel resection. Discontinued IV methylprednisolone 40 mg b.i.d. on the day of surgery Continue Duonebs and incentive spirometry. KAYLEEN, most likely multifactorial etiology prerenal ( due to GI loss and bleeding ), intrinsic 2/2 acute tubular necrosis, post renal (urinary retention/obstruction) Non-anion gap Metabolic acidosis, resolved Creatinine has up trended from 3.48 to 3.7 BUN is 72 BUN/Cr is normal, FENA 1.7%, urine sodium 52 Renal ultrasound showed no hydronephrosis Discontinued LR, patient is on D5 at 50 mL/hour Negative fluid balance of 645 mL in the last 12 hours, continue strict Is&Os Avoid nephrotoxic agents Monitor creatinine and electrolytes Grain Receiver, Dr. Marquez is following up on the patient Moderate Hyperphosphatemia Pseudohypocalcemia Phosphorus has downtrended to 6.1 Sevelamer 800 mg t.i.d. once patient tolerates oral feeds Calcium is 8.1, corrected calcium is 9.9 which is normal Grain Receiver, Dr. Marquez is following up on the patient Hypermagnesemia, improving Magnesium is 2.6 History of shingles Patient uses oxycodone at home Continue supportive care with p.r.n. pain management. Hypertension Blood pressure is on the higher side Patient uses hydrochlorothiazide 25 mg, lisinopril 40 mg, amlodipine 5 mg and metoprolol tartrate 25 mg b.i.d. at home Continue metoprolol tartrate 25 mg b.i.d. and increased amlodipine to 10 mg IV hydralazine 10 mg p.r.n. q.6 hours for high blood pressures if systolic BP > 180 Continue monitoring the vitals closely History of stoke Patient uses aspirin 81 mg, atorvastatin 20 mg at home Held aspirin, in view of hematuria present on admission Goal LDL < 55 LDL 44, We will continue atorvastatin 20 mg after patient tolerates oral diet Severe malnutrition BMI-19.1 Kg/m2 Code status: Full code DVT prophylaxis: SCD GI prophylaxis: IV pantoprazole 40 mg b.i.d. Pain management: Tylenol/[place] 5 mg/10 mg p.r.n. Diet/nutrition: Clear liquid diet Prognosis: Guarded Disposition: Postop day 3 s/p small-bowel resection, Continue management as per Dr. Orona, he is covering for Dr. White over the weekend, PT eval and DC plan Resident MD attestation: The patient note has been reviewed and supervised by senior residents PGY-2/ PGY-3. Patient was seen, examined and discussed with attending physician, Dr. Aline Garcia MD Internal Medicine resident, PGY-1 Date of Service: May 03, 2025 Billing Provider: CECY SHARMA MD, PREETHI, RES May 03, 2025 12:29
[2025-05-03] MEDS: oxyCODONE IR 5mg (immed. release) tablet PO PRN (14:05)
[2025-05-03] MEDS: morphine 4 MG/ML inj SYRINge IV PRN (23:04)
[2025-05-04] VITALS (10 sets, daily range): BP systolic 110–167; BP diastolic 59–79; PULSE 69–76; RESP 12–22; TEMP 98.2–100.6; O2SAT 90–97
[2025-05-04 07:11] LABS: MEAN PLATELET VOLUME 8.6 FL (7.4-10.4); RED CELL DISTRIBUTION WIDTH 14.7 % (11.5-14.5)
[2025-05-04 07:51] LABS: CREATININE 3.51 MG/DL (0.60-1.10); TOTAL CARBON DIOXIDE 25.3 MMOL/L (24-32); eCRCL 15 ML/MIN; eGFR 17 ML/MIN
[2025-05-04] MEDS ORDERED: magnesium Cl slow-release 64mg tablet PO PRN (12:40)
[2025-05-04] MEDS ORDERED: potassium Cl 20 mEq SR tablet PO PRN (12:40)
[2025-05-04] MEDS ORDERED: potassium Cl 40MEQ/1/2NS 520ml 520 ML IV PRN (12:40)
[2025-05-04] MEDS ORDERED: magnesium sulf-water 2g/50mL 50 ML IV PRN (12:40)
[2025-05-04] MEDS ORDERED: magnesium sulf-water 4G/100mL 100 ML IV PRN (12:40)
[2025-05-04] MEDS: potassium Cl 20 mEq SR tablet PO PRN (12:56)
--- NOTE | 2025-05-04 14:52 | PROGRESS NOTE ---
Progress Note ID Providers to CC ~ Progress Note Progress Note: multiple bm/vss/abd-nondistended a/p 1. s/p small bowel resection-slow progress/cont supportive care WICHO SANDERS MD May 04, 2025 14:52
--- NOTE | 2025-05-04 16:45 | PROGRESS NOTE- Residence ---
Progress Note - Resident Providers to CC Resident Creating Document: NABILA GARCIA RES ~ Antibiotic Timeout Antibiotic Ordered?: Yes Subjective Patient was seen and examined bedside. He had bowel movement today. He states that his abdominal pain has improved mildly. Bowel sounds are heard. He has not been taking the clear liquids, he denies nausea or vomiting but states that he has not been feeling hungry and does not want any food. There was no blood in Brody's bag. Objective Vital Signs Date Time Temp Pulse Resp B/P (MAP) Pulse Ox O2 Delivery O2 Flow Rate FiO2 05/04/25 11:31 98.7 70 12 142/59 (86) 96 Nasal Cannula 2.0 05/04/25 08:23 28 Result Diagram: 05/04/25 0632 05/04/25 0632 Awake, alert, and oriented x4, in no acute distress, Brody's tube present HEENT: Atraumatic, normocephalic, EOMI, anicteric sclera ; pink conjunctiva, dry mucous membranes Neck: Trachea midline. Supple, full range of motion, no JVD Cardiac: Regular rhythm, regular rate with no murmurs all over the precordium. Respiratory: Equal breath sounds bilaterally, no tachypnea, no wheezing ,rub or rales, Chest wall is symmetric and without deformity. Gastrointestinal: Incision over midline of abdomen is clean, without discharge and surrounding skin is normal. Abdomen soft, diffuse tenderness present in abdomen, bowel sounds heard, no hepatosplenomegaly Musculoskeletal: No pedal edema, no cyanosis Neurological: Speech is clear, alert, and oriented x 4. No motor or sensory deficit, deep tendon reflexes normal, cerebellar intact. Cranial nerves II-XII intact. Skin: Warm and dry Coagulation Studies Laboratory Tests Test 04/27/25 16:34 Prothrombin Time 10.7 SECONDS (9.0-12.0) INR International Normalized Ratio 1.0 INR Activated Partial Thromboplast Time 27 SECONDS (22-32) Coagulation Comments Assessment Assessment 80-year-old male with history of hypertension, BPH, laparoscopic prostate resection on April 20, 2025 admitted for management of SBO s/p exploratory laparotomy with small-bowel resection. Plan Plan Small-bowel obstruction s/p exploratory laparotomy and small-bowel resection, post op day- 4 Patient underwent small bowel resection by Dr. Wihte He did not take his clear liquids today, he states that he does not feel like eating He denies nausea or vomiting Bowel sounds heard He has had bowel movement today WBC up trended to 14.2 Procalcitonin has downtrended to 3.07 Continue IV Zosyn- day 4 Continue pain management On D5 at 50 mL/hour Peritoneal fluid culture shows no growth Continue management as per surgeon, Dr. White PT recommends post acute care Hematemesis, resolved Normocytic normochromic anemia EGD Dr. Hickman showed LA grade B esophagitis with no active bleeding at the distal esophagus with 1 or more mucosal breaks greater than 5 mm, not extending between the tops of 2 mucosal folds, congested and erythematous mucosa in the gastric body and antrum which was biopsied and no blood was seen in the stomach Patient is not on anticoagulants, he is on aspirin 81 mg 2/2 history of stroke, held aspirin H/H has been stable- 8.2/24.8 Continue IV Protonix 20 b.i.d. Monitor H&H q.12h PRBC transfusion if Hb < 7 Hematuria, resolved UTI due to indwelling brody's catheter BPH s/p laparoscopic prostate resection on Apr 20, [address] [facility] Patient denies history of prostate cancer He has brody's in place which has clear urine CT (04/27/25) showed bladder wall thickening with surrounding stranding which may represent sequela of cystitis, and free air within the pelvis which is secondary to recent surgery Urinalysis showed large occult blood with UTI. Urine culture-no growth. Blood culture-no growth. The patient received four days of IV ceftriaxone Continue IV Zosyn- day 4 Continue home medication finasteride 5 mg and Trospium 20 mg BID for spasms Monitor for bleeding , consider continuous bladder irrigation in the event of hematuria Acute respiratory failure 2/2 Community acquired pneumonia covering gram negative and gram positive bacteria, improving Possible aspiration pneumonia- POA Bronchiectasis Patient is saturating well on 2 L O2 NC, we will try to wean him off slowly He is an active smoker- 1 pack/day for the past [address] (04/27/25) showed right lower lobe pulmonary consolidation, tree-in-bud nodularity, and bronchiectatic changes with differential considerations including atypical infectious processes, aspiration. He received four days of IV ceftriaxone and three days of azithromycin, discontinued them Continue IV Zosyn - day 4, s/p small-bowel resection. Discontinued IV methylprednisolone 40 mg b.i.d. on the day of surgery Continue Duonebs and incentive spirometry. KAYLEEN, most likely multifactorial etiology prerenal ( due to GI loss and bleeding ), intrinsic 2/2 acute tubular necrosis, post renal (urinary retention/obstruction) Non-anion gap Metabolic acidosis, resolved Creatinine has downtrended to 3.51 BUN has downtrended to 65 BUN/Cr is normal, FENA 1.7%, urine sodium 52 Renal ultrasound showed no hydronephrosis On D5 at 50 mL/hour Positive fluid balance of 500 mL in the last 12 hours, continue strict Is&Os Avoid nephrotoxic agents Monitor creatinine and electrolytes Managing Consultant Clinical Professor, Dr. Marquez is following up on the patient Moderate Hyperphosphatemia Pseudohypocalcemia Phosphorus has been slowly downtrending Sevelamer 800 mg t.i.d. once patient tolerates oral feeds Calcium is 8, corrected calcium is 9.9 which is normal Managing Consultant Clinical Professor, Dr. Marquez is following up on the patient Hypermagnesemia, improving Magnesium was 3.1 on admission and slowly downtrended Follow up magnesium tomorrow History of shingles Patient uses oxycodone at home Continue supportive care with p.r.n. pain management. Hypertension Blood pressure is on the higher side Patient uses hydrochlorothiazide 25 mg, lisinopril 40 mg, amlodipine 5 mg and metoprolol tartrate 25 mg b.i.d. at home Continue metoprolol tartrate 25 mg b.i.d. and increased amlodipine to 10 mg IV hydralazine 10 mg p.r.n. q.6 hours for high blood pressures if systolic BP > 180 Continue monitoring the vitals closely History of stoke Patient uses aspirin 81 mg, atorvastatin 20 mg at home Held aspirin, in view of hematuria present on admission Goal LDL < 55 LDL 44, We will continue atorvastatin 20 mg after patient tolerates oral diet Severe malnutrition BMI-19.1 Kg/m2 Code status: Full code DVT prophylaxis: SCD GI prophylaxis: IV pantoprazole 40 mg b.i.d. Pain management: Tylenol/[place] 5 mg/10 mg p.r.n. Diet/nutrition: Clear liquid diet Prognosis: Guarded Disposition: Postop day 4 s/p small-bowel resection, he had a bowel movement today, Continue management as per Dr. White, PT recommends post acute care Resident MD attestation: The patient note has been reviewed and supervised by senior residents PGY-2/ PGY-3. Patient was seen, examined and discussed with attending physician, Dr. Aline Garcia MD Internal Medicine resident, PGY-1 Date of Service: May 04, 2025 Billing Provider: CECY SHARMA MD, PREETHI, RES May 04, 2025 16:45
[2025-05-04 18:12] LABS: MEAN PLATELET VOLUME 8.1 FL (7.4-10.4); RED CELL DISTRIBUTION WIDTH 14.7 % (11.5-14.5)
[2025-05-05] VITALS (9 sets, daily range): BP systolic 154–163; BP diastolic 55–88; PULSE 60–86; RESP 12–18; TEMP 98.1–100.1; O2SAT 90–94
[2025-05-05 06:50] LABS: MEAN PLATELET VOLUME 8.6 FL (7.4-10.4); RED CELL DISTRIBUTION WIDTH 14.7 % (11.5-14.5)
[2025-05-05 07:24] LABS: CREATININE 3.21 MG/DL (0.60-1.10); PHOSPHORUS 3.5 MG/DL (2.3-4.5); TOTAL CARBON DIOXIDE 26.1 MMOL/L (24-32); eCRCL 17 ML/MIN; eGFR 19 ML/MIN
[2025-05-05] MEDS: nystatin 500,000 unit/5ML UD oral suspension PO SCH (12:57)
--- NOTE | 2025-05-05 15:41 | PROGRESS NOTE- Residence ---
Progress Note - Resident Providers to CC Resident Creating Document: NABILA GARCIA RES ~ Antibiotic Timeout Antibiotic Ordered?: Yes Subjective Patient was seen and examined bedside. He has been having bowel movements. He states that his abdominal pain has improved mildly. Bowel sounds are heard. He has not been taking the clear liquids, he denies nausea or vomiting but states that he does not want any food. There was no blood in Brody's bag. The patient stated that he does not want to go rehab but he has not been able to walk with PT. The patient agreed to short-term rehab in the afternoon and he is accepted at [facility] which [place]. We are awaiting authorization info. Objective Vital Signs Date Time Temp Pulse Resp B/P (MAP) Pulse Ox O2 Delivery O2 Flow Rate FiO2 05/05/25 15:25 98.4 05/05/25 14:09 17 05/05/25 10:00 69 163/85 (111) 93 Room Air 05/05/25 09:28 2 28 Result Diagram: 05/05/2562605/05/25 0627 Awake, alert, and oriented x4, in no acute distress, Brody's tube present HEENT: Atraumatic, normocephalic, EOMI, anicteric sclera ; pink conjunctiva, dry mucous membranes, oral thrush noted Neck: Trachea midline. Supple, full range of motion, no JVD Cardiac: Regular rhythm, regular rate with no murmurs all over the precordium. Respiratory: Equal breath sounds bilaterally, no tachypnea, no wheezing ,rub or rales, Chest wall is symmetric and without deformity. Gastrointestinal: Incision over midline of abdomen is clean, without discharge and surrounding skin is normal. Abdomen soft, diffuse tenderness present in abdomen, bowel sounds heard, no hepatosplenomegaly Musculoskeletal: No pedal edema, no cyanosis Neurological: Speech is clear, alert, and oriented x 4. No motor or sensory deficit, deep tendon reflexes normal, cerebellar intact. Cranial nerves II-XII intact. Skin: Warm and dry Coagulation Studies Laboratory Tests Test 04/27/25 16:34 Prothrombin Time 10.7 SECONDS (9.0-12.0) INR International Normalized Ratio 1.0 INR Activated Partial Thromboplast Time 27 SECONDS (22-32) Coagulation Comments Assessment Assessment 80-year-old male with history of hypertension, BPH, laparoscopic prostate resection on April 20, 2025 admitted for management of SBO s/p exploratory laparotomy with small-bowel resection. Plan Plan Small-bowel obstruction s/p exploratory laparotomy and small-bowel resection, post op day- 5 Patient underwent small bowel resection by Dr. White He denies nausea or vomiting Bowel sounds heard He has been having bowel movements WBC up trended from 12.4 to 13.1 Continue IV Zosyn- day 5 Continue pain management Peritoneal fluid culture shows no growth Dr. White cleared him for discharge to rehab and advanced diet to soft/low fiber diet Started ensure enlive PT recommends post acute care but the patient stated that he does not want to go rehab. The patient agreed to short-term rehab in the afternoon and he is accepted at [facility] which [place]. We are awaiting authorization info. Hematemesis, resolved Normocytic normochromic anemia EGD Dr. Hickman showed LA grade B esophagitis with no active bleeding at the distal esophagus with 1 or more mucosal breaks greater than 5 mm, not extending between the tops of 2 mucosal folds, congested and erythematous mucosa in the gastric body and antrum which was biopsied and no blood was seen in the stomach Patient is not on anticoagulants, he is on aspirin 81 mg 2/2 history of stroke, held aspirin H/H has been stable- 8.2/24.8 Continue IV Protonix 20 b.i.d. Monitor H&H q.12h PRBC transfusion if Hb < 7 Hematuria, resolved UTI due to indwelling brody's catheter BPH s/p laparoscopic prostate resection on Apr 20, 2025 at [facility] Patient denies history of prostate cancer He has brody's in place which has clear urine CT (04/27/25) showed bladder wall thickening with surrounding stranding which may represent sequela of cystitis, and free air within the pelvis which is secondary to recent surgery Urinalysis showed large occult blood with UTI. Urine culture-no growth. Blood culture-no growth. The patient received four days of IV ceftriaxone Continue IV Zosyn- day 5 Continue home medication finasteride 5 mg and Trospium 20 mg BID for spasms Monitor for bleeding , consider continuous bladder irrigation in the event of hematuria Acute respiratory failure 2/2 Community acquired pneumonia covering gram negative and gram positive bacteria, improving Possible aspiration pneumonia- POA Bronchiectasis Patient is saturating well on room air He is an active smoker- 1 pack/day for the past [address] (04/27/25) showed right lower lobe pulmonary consolidation, tree-in-bud nodularity, and bronchiectatic changes with differential considerations including atypical infectious processes, aspiration. He received four days of IV ceftriaxone and three days of azithromycin, discontinued them Continue IV Zosyn - day 5, s/p small-bowel resection. Discontinued IV methylprednisolone 40 mg b.i.d. on the day of surgery Continue Duonebs and incentive spirometry. KAYLEEN, most likely multifactorial etiology prerenal ( due to GI loss and bleeding ), intrinsic 2/2 acute tubular necrosis, post renal (urinary retention/obstruction) Non-anion gap Metabolic acidosis, resolved Creatinine has downtrended to 3.21 BUN has downtrended to 56 BUN/Cr is normal, FENA 1.7%, urine sodium 52 Renal ultrasound showed no hydronephrosis On D5W at 50 mL/hour Negative fluid balance of 1155 mL in the last 12 hours, continue strict Is&Os Avoid nephrotoxic agents Monitor creatinine and electrolytes Rn Unit Manager, Dr. Marquez is following up on the patient Moderate Hyperphosphatemia, resolved Phosphorus has downtrended to 3.5 Sevelamer 800 mg t.i.d. once patient tolerates oral feeds Hypermagnesemia, resolved Magnesium has downtrended to 2 History of shingles Patient uses oxycodone at home Continue supportive care with p.r.n. pain management. Hypertension Blood pressure is on the higher side Patient uses hydrochlorothiazide 25 mg, lisinopril 40 mg, amlodipine 5 mg and metoprolol tartrate 25 mg b.i.d. at home Increased metoprolol tartrate to 50 mg b.i.d. and increased amlodipine to 10 mg IV hydralazine 10 mg p.r.n. q.6 hours for high blood pressures if systolic BP > 180 Continue monitoring the vitals closely History of stoke Patient uses aspirin 81 mg, atorvastatin 20 mg at home Held aspirin, in view of hematuria present on admission Goal LDL < 55 LDL 44, We will continue atorvastatin 20 mg after patient tolerates oral diet Severe malnutrition BMI-19.1 Kg/m2 Oral thrush Started nystatin 5 mL p.o. t.i.d. Code status: Full code DVT prophylaxis: SCD GI prophylaxis: IV pantoprazole 40 mg b.i.d. Pain management: Tylenol/[place] 5 mg/10 mg p.r.n. Diet/nutrition: Soft diet Prognosis: Guarded Disposition: Postop day 5 s/p small-bowel resection, he has been having bowel movements, Dr. White cleared him for discharge, The patient agreed to short- term rehab in the afternoon and he is accepted at [facility] which [place]. We are awaiting authorization info. Resident attestation: The patient note has been reviewed and supervised by senior residents PGY-2/ PGY-3. Patient was seen, examined and discussed with attending physician, Dr. Aline Garcia MD Internal Medicine resident, PGY-1 Date of Service: May 05, 2025 Billing Provider: CECY SHARMA MD, PREETHI, RES May 05, 2025 15:41
--- NOTE | 2025-05-05 17:27 | PROGRESS NOTE ---
Progress Note ID Providers to CC ~ Progress Note Progress Note: min pain-poor po intake/vss/abd-min distention/labs noted a/p 1. s/p small bowel resection-slow progress/needs dc planning WICHO SANDERS MD May 05, 2025 17:27
[2025-05-05] MEDS: Ensure Enlive - 237ML PO SCH (17:49)
[2025-05-05 18:50] LABS: MEAN PLATELET VOLUME 8.5 FL (7.4-10.4); RED CELL DISTRIBUTION WIDTH 14.7 % (11.5-14.5)
[2025-05-06] VITALS (7 sets, daily range): BP systolic 164–177; BP diastolic 65–74; PULSE 66–73; RESP 16–22; TEMP 98.1–100.8; O2SAT 91–94
[2025-05-06 05:37] LABS: MEAN PLATELET VOLUME 8.7 FL (7.4-10.4); RED CELL DISTRIBUTION WIDTH 14.6 % (11.5-14.5)
[2025-05-06 05:52] LABS: CREATININE 3.03 MG/DL (0.60-1.10); TOTAL CARBON DIOXIDE 27.1 MMOL/L (24-32); eCRCL 18 ML/MIN; eGFR 20 ML/MIN
--- NOTE | 2025-05-06 14:37 | PROGRESS NOTE ---
Progress Note ID Providers to CC ~ Progress Note Progress Note: slow progress/awaiting rehab WICHO SANDERS MD May 06, 2025 14:37
--- NOTE | 2025-05-06 17:37 | PROGRESS NOTE- Residence ---
Progress Note - Resident Providers to CC Resident Creating Document: NABILA GARCIA RES ~ Antibiotic Timeout Antibiotic Ordered?: Yes Subjective Patient was seen and examined bedside. He has been having bowel movements. He states that his abdominal pain has improved mildly. Bowel sounds are heard. He has decreased p.o. intake, he denies nausea or vomiting. He is accepted at [facility] which is [place] contracted facility. We are awaiting authorization info. Objective Vital Signs Date Time Temp Pulse Resp B/P (MAP) Pulse Ox O2 Delivery O2 Flow Rate FiO2 05/06/25 16:36 17 05/06/25 10:08 100.0 67 164/65 (98) 91 05/06/25 08:00 Room Air 05/06/25 07:51 0 21 Result Diagram: 05/06/25 0452 05/06/25 0452 Awake, alert, and oriented x4, in no acute distress, Brody's tube present HEENT: Atraumatic, normocephalic, EOMI, anicteric sclera ; pink conjunctiva, dry mucous membranes, oral thrush noted Neck: Trachea midline. Supple, full range of motion, no JVD Cardiac: Regular rhythm, regular rate with no murmurs all over the precordium. Respiratory: Equal breath sounds bilaterally, no tachypnea, no wheezing ,rub or rales, Chest wall is symmetric and without deformity. Gastrointestinal: Incision over midline of abdomen is clean, without discharge and surrounding skin is normal. Abdomen soft, diffuse tenderness present in abdomen, bowel sounds heard, no hepatosplenomegaly Musculoskeletal: No pedal edema, no cyanosis Neurological: Speech is clear, alert, and oriented x 4. No motor or sensory deficit, deep tendon reflexes normal, cerebellar intact. Cranial nerves II-XII intact. Skin: Warm and dry Coagulation Studies Laboratory Tests Test 04/27/25 16:34 Prothrombin Time 10.7 SECONDS (9.0-12.0) INR International Normalized Ratio 1.0 INR Activated Partial Thromboplast Time 27 SECONDS (22-32) Coagulation Comments Assessment Assessment 80-year-old male with history of hypertension, BPH, laparoscopic prostate resection on April 20, 2025 admitted for management of SBO s/p exploratory laparotomy with small-bowel resection. Plan Plan Small-bowel obstruction s/p exploratory laparotomy and small-bowel resection, post op day- 6 Patient underwent small bowel resection by Dr. White He denies nausea or vomiting Bowel sounds heard He has been having bowel movements WBC downtrended from 12.9 to 12.7 Continue IV Zosyn-day 6, we will discontinue tomorrow before discharge Continue pain management Peritoneal fluid culture shows no growth Dr. White cleared him for discharge to rehab and advanced diet to soft/low fiber diet Continue ensure enlive He is accepted at [facility] which is [place] contracted facility. We are awaiting authorization info. Hematemesis, resolved Normocytic normochromic anemia EGD Dr. Hickman showed LA grade B esophagitis with no active bleeding at the distal esophagus with 1 or more mucosal breaks greater than 5 mm, not extending between the tops of 2 mucosal folds, congested and erythematous mucosa in the gastric body and antrum which was biopsied and no blood was seen in the stomach Patient is not on anticoagulants, he is on aspirin 81 mg 2/2 history of stroke, held aspirin H/H has been stable- 8.2/24.8 Continue IV Protonix 20 b.i.d. Monitor H&H q.12h PRBC transfusion if Hb < 7 Hematuria, resolved UTI due to indwelling brody's catheter BPH s/p laparoscopic prostate resection on Apr 20, 2025 at [facility] Patient denies history of prostate cancer He has brody's in place which has clear urine CT (04/27/25) showed bladder wall thickening with surrounding stranding which may represent sequela of cystitis, and free air within the pelvis which is secondary to recent surgery Urinalysis showed large occult blood with UTI. Urine culture-no growth. Blood culture-no growth. The patient received four days of IV ceftriaxone Continue IV Zosyn- day 6 Continue home medication finasteride 5 mg and Trospium 20 mg BID for spasms Monitor for bleeding, consider continuous bladder irrigation in the event of hematuria Acute respiratory failure 2/2 Community acquired pneumonia covering gram negative and gram positive bacteria, improving Possible aspiration pneumonia- POA Bronchiectasis Patient is saturating well on room air He is an active smoker- 1 pack/day for the past [address] (04/27/25) showed right lower lobe pulmonary consolidation, tree-in-bud nodularity, and bronchiectatic changes with differential considerations including atypical infectious processes, aspiration. He received four days of IV ceftriaxone and three days of azithromycin, discontinued them Continue IV Zosyn - day 6, s/p small-bowel resection. Discontinued IV methylprednisolone 40 mg b.i.d. on the day of surgery Continue Duonebs and incentive spirometry. KAYLEEN, most likely multifactorial etiology prerenal ( due to GI loss and bleeding ), intrinsic 2/2 acute tubular necrosis, post renal (urinary retention/obstruction) Non-anion gap Metabolic acidosis, resolved Creatinine has downtrended to 3.03 BUN has downtrended to 50 BUN/Cr is normal, FENA 1.7%, urine sodium 52 Renal ultrasound showed no hydronephrosis On D5W at 50 mL/hour Negative fluid balance of 500 mL in the last 12 hours, continue strict Is&Os Avoid nephrotoxic agents Monitor creatinine and electrolytes Moderate Hyperphosphatemia, resolved Phosphorus has downtrended to 3.5 Sevelamer 800 mg t.i.d. once patient tolerates oral feeds Hypermagnesemia, resolved Magnesium has downtrended to 2 History of shingles Patient uses oxycodone at home Continue supportive care with p.r.n. pain management. Hypertension Blood pressure is on the higher side Patient uses hydrochlorothiazide 25 mg, lisinopril 40 mg, amlodipine 5 mg and metoprolol tartrate 25 mg b.i.d. at home Increased metoprolol tartrate to 50 mg b.i.d. and increased amlodipine to 10 mg IV hydralazine 10 mg p.r.n. q.6 hours for high blood pressures if systolic BP > 180 Continue monitoring the vitals closely History of stoke Patient uses aspirin 81 mg, atorvastatin 20 mg at home Held aspirin, in view of hematuria present on admission Goal LDL < 55 LDL 44, We will continue atorvastatin 20 mg after patient tolerates oral diet Severe malnutrition BMI-19.1 Kg/m2 Oral thrush Started nystatin 5 mL p.o. t.i.d. Code status: Full code DVT prophylaxis: SCD GI prophylaxis: IV pantoprazole 40 mg b.i.d. Pain management: Tylenol/[place] 5 mg/10 mg p.r.n. Diet/nutrition: Soft diet Prognosis: Guarded Disposition: Postop day 6 s/p small-bowel resection, he has been having bowel movements, Dr. White cleared him for discharge, He is accepted at [facility] which is [place] contracted facility. We are awaiting authorization info. Resident attestation: The patient note has been reviewed and supervised by senior residents PGY-2/ PGY-3. Patient was seen, examined and discussed with attending physician, Dr. Aline Garcia MD Internal Medicine resident, PGY-1 Date of Service: May 06, 2025 Billing Provider: CECY SHARMA MD,NABILA, RES May 06, 2025 17:37
[2025-05-07 04:49] LABS: CREATININE 2.97 MG/DL (0.60-1.10); MEAN PLATELET VOLUME 8.4 FL (7.4-10.4); RED CELL DISTRIBUTION WIDTH 14.2 % (11.5-14.5); TOTAL CARBON DIOXIDE 25.9 MMOL/L (24-32); eCRCL 18 ML/MIN; eGFR 21 ML/MIN
[2025-05-07 06:00] VITALS: BP 179/74; PULSE 69; RESP 18; TEMP 98.1; O2SAT 94
[2025-05-07 07:55] VITALS: PULSE 71; RESP 18; O2SAT 92
[2025-05-07 08:00] VITALS: RESP 17; O2SAT 92
[2025-05-07 10:13] VITALS: BP 124/76; PULSE 77; RESP 17; TEMP 98; O2SAT 92
[2025-05-07 15:35] VITALS: RESP 18
--- NOTE | 2025-05-07 18:22 | DISCHARGE SUMMARY-Residence ---
Discharge Summary Providers to CC Resident Creating Document: NABILA GARCIA, RES ~ Discharge Summary Admission Diagnosis: sbo Hospital Course DATE OF ADMISSION: 04/27/25 DATE OF DISCHARGE: 05/07/25 Discharge Diagnosis\Comment: Small-bowel obstruction s/p exploratory laparotomy and small-bowel resection by Dr. White Hematemesis, resolved 2/2 LA grade B esophagitis with no active bleeding Normocytic normochromic anemia Hematuria, resolved 2/2 trauma from indwelling brody's catheter Acute cystitis with hematuria due to indwelling brody's catheter BPH s/p laparoscopic prostate resection on Apr 20, 2025 Acute respiratory failure 2/2 Community acquired pneumonia covering gram negative and gram positive bacteria Possible aspiration pneumonia- POA Bronchiectasis KAYLEEN, most likely multifactorial etiology, prerenal ( due to GI loss and bleeding ), intrinsic 2/2 acute tubular necrosis, post renal (urinary retention/obstruction) Non-anion gap Metabolic acidosis, resolved Moderate Hyperphosphatemia, resolved Hypermagnesemia, resolved History of shingles Hypertension History of stoke Severe malnutrition Oral thrush Operations\Procedures: exploratory laparotomy with small-bowel resection, by Dr. White EGD by Dr. Hickman , the music assistant Consultants: Dr. Brian White, the surgeon Dr. Jorge Marquez, the flexible babysitter Dr. Marylou Diaz, the Account Installer Complications: None Condition on DC: Stable for transfer Discharge Summary: History of present illness: 80 year old male with history of hypertension, BPH, laparoscopic prostate resection on Apr 20, 2025, history of stoke was brought to the ER by son due to hematemesis and hematuria. He denies prostate cancer and states that he had the surgery as he was unable to void. The son was at home today and noticed bright red blood in vomit and brought him to the ER. The patient states that he has been having 3/4 episodes of hematemesis everyday, especially after he voids after the laparoscopic prostate resection surgery on Apr 20, 2025. He also has hematuria since the surgery, He has a brody's in place with reddish urine but no clots. He is not on anticoagulants. He is on aspirin due to history of stroke. He is not an alcoholic. He never had an endoscopy. He endorses lower abdominal pain. He did not have a bowel movement since the surgery but has been passing gas. He has not been walking much after the surgery. He has decreased appetite and has lost weight. He reports occasional chills. He denies chest pain, shortness of breath, palpitations, swelling and pain in legs, confusion, headach e. Course in the hospital: He had small episodes of hematemesis, he was not on any blood thinners. He was on home aspirin 81 mg due to history of showed. H&H was 11/32.1. He was started on a Protonix drip, NG tube was placed in the ED and patient was on NPO. GI was consulted and recommended to consult surgery as patient showed more signs of ileus and SBO, and patient was not having active hematemesis and H&H was stable. Surgeon, Dr. White was consulted and stated that patient did not have any signs of peritonitis and that he did not need an emergent surgery. Abdomen CT showed large volume stool within the colon which may represent constipation and moderate distention of small-bowel loops with fecal contents up to 3 cm, fecal contents within the small bowel which can be seen with ileus hypomotility and bowel obstruction, no hydronephrosis. He was observed over the next 2 days, he was not having a bowel movement, and had faint bowel sounds. He underwent exploratory laparotomy with small-bowel resection by Dr. White on April 30, 2025. He had faint bowel sounds the next day and had a bowel movement subsequently. He was started on clear liquids, patient did not have nausea or vomiting but did not want to take the clear liquids as he did not feel like it. Dr. White was following up on the patient and advanced him to soft diet. Dr. White cleared him for discharge subsequently. The patient did not have any blood in his Brody's bag from the 3rd day of admission and he did not require any continuous bladder irrigation. He did not have hematemesis after admission. Patient was requiring oxygen and was treated for pneumonia with ceftriaxone and azithromycin, and he was started on Zosyn after surgery. He was given IV methylprednisolone 40 mg b.i.d. and continued on DuoNebs and incentive spirometry. He was slowly weaned off of oxygen. He was on D5 at 50 mL/hour as he was NPO before the surgery and did not eat properly even after the surgery. Patient takes hydrochlorothiazide 25 mg, lisinopril 40 mg, amlodipine 5 mg, metoprolol tartrate 25 mg b.i.d. at home. Blood pressure was on the higher side, he was continued on metoprolol tartrate 50 mg b.i.d. and amlodipine 10 mg. He was continued on aspirin 81 mg, atorvastatin 20 mg due to history of stroke and he was continued on atorvastatin 20 mg. He had oral thrush and was started on nystatin 5 mL p.o. t.i.d. He was accepted at [facility] which is [place] contracted facility. Patient did not experience further complications throughout the entire hospital stay. Patient was seen and examined on the day of discharge. All labs, diagnostic workups, discharge plan discussed with the patient in detail during visit before discharge. All questions and concerns answered to the best of my professional knowledge. Imaging: CT abd/pelvis: 04/27/25: Moderate volume of pneumoperitoneum. There is also free air within the pelvis. While this could be secondary to the patient's known history of recent laparoscopic prostate surgery/prostatectomy, correlate clinically to exclude any type of perforated viscus/perforated bowel. Recommend urology and surgery consultation for evaluation. Large volume stool within the colon may represent constipation in the appropriate clinical setting. Moderate distention of small-bowel loops with fecal like contents up to 3 cm. Fecal like contents within the small bowel which can be seen with ileus, hypomotility, bowel obstruction. Gastric distention. There is right lower lobe pulmonary airspace consolidation, tree-in-bud nodularity and bronchiectatic changes with differential considerations including atypical infectious processes, aspiration. Atherosclerotic disease. 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 Extensive colonic diverticular disease. Bladder decompressed by Brody catheter. Bladder wall thickening with surrounding stranding may represent sequela of cystitis. CT abd/pelvis: 04/29/25: Rectal contrast only extends to the sigmoid colon, limiting evaluation. Pneumoperitoneum again is noted, slightly less pronounced than on prior exam ination. Again, this could be postoperative in nature, secondary to perforated bowel/ viscus. Correlate clinically. Recommend surgical consultation. The proximal to mid small bowel loops are abnormally dilated to 3.6 cm. The mid to distal small bowel loops are relatively nondilated. Differential considerations would include ileus, small-bowel obstruction. Correlate clinically. Recommend surgical consultation. Small-bowel series with water- soluble contrast can be obtained to further evaluate Gastric distention. Moderate volume stool within the colon. Colonic diverticular disease. Atherosclerotic disease. 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 Bilateral lower lobe pulmonary airspace consolidation, atelectasis. CT abd/pelvis: 04/30/25: Marked gastric distention and dilatation of the proximal to mid small bowel loops with collapse/ non distention of the distal small bowel loops. These findings could represent again small-bowel obstruction, severe ileus. Recommend surgical consultation for further evaluation. Moderate volume stool with the colon. Colonic diverticular disease. Pneumoperitoneum decreased from previous examination. Bilateral lower lobe pulmonary airspace consolidation, atelectasis. Xray Abdomen: 04/27/25: Limited evaluation for the assessment of nasogastric tube placement. Nasogastric tube tip projects over the left upper quadrant, presumably in the region of the stomach, though the gastric side port appears to project above the diaphragm, consider tube advancement. Renal US: 04/29/25: Normal sonographic appearance of the kidneys. No hydronephrosis. CXR: 04/30/25: Hazy left lower lobe opacity which may represent early aspiration. CXR: 05/01/25: 1. Progressive left perihilar and lower lung zone pulmonary airspace disease. 2. Enteric catheter. Xray:04/30/25: Nonobstructive bowel gas pattern noted. There is no evidence for pneumoperitoneum. No abnormal calcifications noted. Moderate to severe stool burden. Postsurgical changes with overlying surgical clips of the midline. Correlate for constipation. Physical exam at discharge: Awake, alert, and oriented x4, in no acute distress, Brody's tube present HEENT: Atraumatic, normocephalic, EOMI, anicteric sclera ; pink conjunctiva, dry mucous membranes, oral thrush noted Neck: Trachea midline. Supple, full range of motion, no JVD Cardiac: Regular rhythm, regular rate with no murmurs all over the precordium. Respiratory: Equal breath sounds bilaterally, no tachypnea, no wheezing ,rub or rales, Chest wall is symmetric and without deformity. Gastrointestinal: Incision over midline of abdomen is clean, without discharge and surrounding skin is normal. Abdomen soft, diffuse tenderness present in abdomen, bowel sounds heard, no hepatosplenomegaly Musculoskeletal: No pedal edema, no cyanosis Neurological: Speech is clear, alert, and oriented x 4. No motor or sensory deficit, deep tendon reflexes normal, cerebellar intact. Cranial nerves II-XII intact. Skin: Warm and dry Vital Signs Date Time Temp Pulse Resp B/P (MAP) Pulse Ox O2 Delivery O2 Flow Rate FiO2 05/07/25 15:35 18 05/07/25 10:13 98.0 77 124/76 (92) 92 Room Air 05/07/25 08:00 0.0 21 Laboratory Tests Test 05/06/25 04:52 05/07/25 04:25 05/07/25 09:08 White Blood Count 12.7 X10'3 12.1 X10'3 Red Blood Count 2.75 X10'6 2.66 X10'6 Hemoglobin 8.2 g/dl 7.8 g/dl Hematocrit 24.4 % 23.5 % Mean Corpuscular Volume 88.7 FL 88.4 FL Mean Corpuscular Hemoglobin 29.9 PG 29.3 PG Mean Corpuscular Hemoglobin Concent 33.8 g/dL 33.1 g/dL Red Cell Distribution Width 14.6 % 14.2 % Platelet Count 267 X10'3 281 X10'3 Mean Platelet Volume 8.7 FL 8.4 FL Neutrophils (%) (Auto) 74.5 % 72.0 % Lymphocytes (%) (Auto) 7.4 % 9.0 % Monocytes (%) (Auto) 12.7 % 13.6 % Eosinophils (%) (Auto) 5.2 % 5.1 % Basophils (%) (Auto) 0.2 % 0.3 % Neutrophils # (Auto) 9.5 X10'3 8.7 X10'3 Lymphocytes # (Auto) 0.9 X10'3 1.1 X10'3 Monocytes # (Auto) 1.6 X10'3 1.7 X10'3 Eosinophils # (Auto) 0.7 X10'3 0.6 X10'3 Basophils # (Auto) 0.0 X10'3 0.0 X10'3 CBC Comment Sodium Level 144 MMOL/L 145 MMOL/L Potassium Level 3.4 MMOL/L 3.9 MMOL/L Chloride Level 110 MMOL/L 112 MMOL/L Carbon Dioxide Level 27.1 MMOL/L 25.9 MMOL/L Anion Gap 7 7 Blood Urea Nitrogen 50 MG/DL 41 MG/DL Creatinine 3.03 MG/DL 2.97 MG/DL Estimated GFR/1.73 m2 20 ML/MIN 21 ML/MIN BUN/Creatinine Ratio 16.5 13.8 Glucose Level 112 MG/DL 99 MG/DL Calcium Level 8.0 MG/DL 8.2 MG/DL Albumin 1.6 G/DL 1.6 G/DL Chemistry Comments Procalcitonin 0.69 NG/ML *Problems/Diagnosis: (1) Hematuria (2) Disorders of fluid, electrolyte, and acid-base balance (3) Constipation (4) Pulmonary consolidation determined by examination (5) Acute kidney injury Status: Acute (6) Small bowel obstruction (7) UTI (urinary tract infection) due to urinary indwelling catheter (8) Acute hypoxic respiratory failure (9) KAYLEEN (acute kidney injury) (10) Severe malnutrition Total Time Spent on D/C: > 30 Minutes Date of Service: May 07, 2025 Billing Provider: CECY SHARMA MD, PREETHI, RES May 07, 2025 18:06
--- NOTE | 2025-05-07 20:29 | PROGRESS NOTE ---
Progress Note ID Providers to CC ~ Progress Note Progress Note: rehab today WICHO SANDERS MD May 07, 2025 20:29
[2025-05-14] MEDS ORDERED: METO100T14 PO (16:52)
[2025-05-14] MEDS ORDERED: DOXY-225 PO ×2 (16:52→17:00)
[2025-05-14] MEDS ORDERED: MULT-1249 PO (16:52)
[2025-05-14] MEDS ORDERED: NYST100069 PO (17:00)
[2025-05-14] MEDS ORDERED: DOXY-224 PO (17:02)
== END 2025-05-07 15:40 | DRG 329 ==
LOC: ER 16:07 → ED HOLD 18:08 → EDBEDREQ 21:02 → ORTHO 4S 22:24 → CICU 2S 04-30 22:10 → PCU 3S 05-02 15:40 → SUR 3N 05-04 16:40
PROVIDERS: ADMIT Family Medicine; ATTEND Family Medicine
PROC: 0D9670Z Drainage of Stomach with Drainage Device, Via Natural or Artificial Opening (ICD-10-PCS; 2025-04-27)
PROC: 0DB68ZX Excision of Stomach, Via Natural or Artificial Opening Endoscopic, Diagnostic (ICD-10-PCS; 2025-04-28)
PROC: 0DB78ZX Excision of Stomach, Pylorus, Via Natural or Artificial Opening Endoscopic, Diagnostic (ICD-10-PCS; 2025-04-28)
PROC: 0DB80ZZ Excision of Small Intestine, Open Approach (ICD-10-PCS; principal; 2025-04-30 19:25)
DX: K91.89 Other postprocedural complications and disorders of digestive system (principal); E43 Unspecified severe protein-calorie malnutrition; J15.69 Pneumonia due to other Gram-negative bacteria; K22.6 Gastro-esophageal laceration-hemorrhage syndrome; J69.0 Pneumonitis due to inhalation of food and vomit; N17.0 Acute kidney failure with tubular necrosis; J15.9 Unspecified bacterial pneumonia; K21.01 Gastro-esophageal reflux disease with esophagitis, with bleeding; J96.00 Acute respiratory failure, unspecified whether with hypoxia or hypercapnia; K56.601 Complete intestinal obstruction, unspecified as to cause; T83.511A Infection and inflammatory reaction due to indwelling urethral catheter, initial encounter; I10 Essential (primary) hypertension; E87.20 Acidosis, unspecified; Z68.1 Body mass index [BMI] 19.9 or less, adult; N13.8 Other obstructive and reflux uropathy; T83.83XA Hemorrhage due to genitourinary prosthetic devices, implants and grafts, initial encounter; K56.7 Ileus, unspecified; E83.39 Other disorders of phosphorus metabolism; E88.09 Other disorders of plasma-protein metabolism, not elsewhere classified; E86.9 Volume depletion, unspecified; Y82.8 Other medical devices associated with adverse incidents; E83.51 Hypocalcemia; Y84.6 Urinary catheterization as the cause of abnormal reaction of the patient, or of later complication, without mention of misadventure at the time of the procedure; R33.8 Other retention of urine; N40.1 Benign prostatic hyperplasia with lower urinary tract symptoms; Y83.8 Other surgical procedures as the cause of abnormal reaction of the patient, or of later complication, without mention of misadventure at the time of the procedure; Y92.89 Other specified places as the place of occurrence of the external cause; Z87.891 Personal history of nicotine dependence; Z79.82 Long term (current) use of aspirin; Z79.899 Other long term (current) drug therapy; Z90.79 Acquired absence of other genital organ(s); Z85.46 Personal history of malignant neoplasm of prostate; Z86.73 Personal history of transient ischemic attack (TIA), and cerebral infarction without residual deficits
CPT/HCPCS: 36415; 36600; 43239; 71045; 71250; 74018; 74176; 76770; 80048; 80053; 80061; 81001; 82570; 82803; 82948; 83036; 83605; 83690; 83735; 83880; 83935; 84100; 84145; 84300; 84540; 85018; 85025; 85027; 85610; 85730; 86885; 86900; 86901; 86920; 87040; 87070; 87075; 87081; 87088; 87207; 93005; 94640; 94760; 97110; 97161; 97164; 97530; 97535; 99152; 99285; A4314; A4615; A4618; A4620; A5200; A6212; A6213; A6223; A6253; A6258; A6446; A6449; A7000; G0378; J0131; J0360; J0456; J0696; J1171; J2060; J2250; J2270; J2274; J2405; J2470; J2543; J2704; J2919; J3010; J3490; J7030; J7042; J7070; J7120; Q9963